=== PATIENT | female | born 1985 | race African-American/Black ===

== ENCOUNTER → 2022-08-02 | Outpatient (CLI) | payer BC, SELFPAY ==
[2022-08-02 10:27] LABS: Mucous, Urine 0 SEEN /hpf (<or=2+)
[2022-08-02 10:34] LABS: Color, Urine Yellow (Yellow); Glucose, Dipstick Normal (Normal); Ketone-Dipstick 50 mg/dl (Negative); Leukocyte Esterase-Dipstick Negative /ul (Negative); Nitrite-Dipstick Negative (Negative); Occult Blood-Urine 25 /ul (Negative); Protein-Dipstick 15 mg/dl (Negative); Specific Gravity, Urine 1.015 (1.002-1.030); Urine Bilirubin Dipstick Negative (Negative); Urine Clarity Clear (Clear); Urine Urobilinogen 1 mg/dl (Normal)
[2022-08-02 10:43] LABS: Bacteria RARE /hpf (None Seen); Red Blood Cells-Urine 0-5 SEEN /hpf (0-5); Squamous Epithelial Cells - UA 0-5 SEEN /hpf (5-10); White Blood Cells 0-5 SEEN /hpf (0-5)
== END | disposition home or self-care (01) ==
LOC: LABSPEC 10:25
PROVIDERS: Visit Provider Physician Assistant
DX: R30.0 Dysuria (principal)
CPT/HCPCS: 81001; 87086; 87088

== ENCOUNTER 2022-09-09 17:39 | Emergency (ER) | payer BC, SELFPAY ==
[2022-09-09 17:41] VITALS: BP 146/99; PULSE 102; RESP 18; TEMP 37.2; O2SAT 100; BMI 36.9
--- NOTE | 2022-09-09 17:44 | EDS_ITS ---
HPI <CARY Mustafa - Last Filed: 09/09/22 21:33> History of Present Illness Chief Complaint: Cold Sx Narrative Narrative: Presenting today with cold symptoms that she has had now for the last 2 weeks. She states that she has had a productive cough, runny nose, and sore throat. She has been taking Robitussin-DM without much relief. She denies any fever, chills, shortness of breath, chest pain, abdominal pain, nausea, vomiting, diarrhea. she denies a history of any chronic lung conditions. PFSH <CARY Mustafa - Last Filed: 09/09/22 21:33> PFSH Medical History no medical history Home Medications NK 09/09/22 [History Last Taken Unknown] Allergy/AdvReac Type Severity Reaction Status Date / Time No Known Allergies Allergy Verified 09/09/22 17:43 Surgical History H/O tubal ligation Social History Smoking Status: Current every day smoker tobacco type: cigarettes ROS <CARY Mustafa - Last Filed: 09/09/22 21:33> ROS ED Constitutional Constitutional ED: Reports fatigue; Denies chills, fever(s) or weakness Eyes Eyes: Reports none ENT ENT ED: Reports rhinorrhea and sore throat Cardiovascular Cardiovascular: Reports fatigue; Denies abdominal pain, chest pain, dyspnea on exertion or nausea Respiratory/Chest Respiratory/Chest: Reports chest congestion and cough; Denies chest tightness, dyspnea, hemoptysis or wheezing Gastrointestinal Gastrointestinal: Denies abdominal pain, diarrhea, nausea or vomiting Musculoskeletal Musculoskeletal: Reports none Integumentary Denies abscess or rash Neurologic Neurologic: Denies weakness Psychiatric Psychiatric: Denies anxiety or depression EXAM <CARY Mustafa - Last Filed: 09/09/22 21:33> Physical Exam Const Vital Signs: 09/09/22 17:41 09/09/22 18:28 Temperature 98.9 F Temperature Source Temporal Pulse Rate 102 H Respiratory Rate 18 Respiratory Effort Normal Non-Labored Respiratory Depth Normal Respiratory Pattern Normal Blood Pressure 146/99 H Blood Pressure Mean 114 Pulse Ox 100 Oxygen Delivery Method Room Air Positive well nourished and well developed General Appearance ED: well developed and NAD HEENT Reports TM's clear and moist mucous membranes HEENT Narrative: Steer pharynx erythemic, tonsils without exudate, uvula midline, no trismus, no drooling normocephalic and atraumatic Tympanic Membrane ED: Yes TM's clear Eyes PERRL and EOMs intact bilaterally Neck no lymphadenopathy, supple and no meningeal signs Resp normal respiratory effort and clear to auscultation bilaterally Cardio no murmurs Rate: regular rate Rhythm: regular rhythm GI non-tender, non-distended and no masses Palpation: soft Neuro oriented x3, CN's II-XII intact bilaterally and no sensory deficits noted Sensorium / Orientation: alert Motor Exam: strength 5/5 throughout Skin Lesions: no lesions Rashes: no rashes <Dr. Abraham Wang DO - Last Filed: 09/09/22 21:51> Physical Exam Const Vital Signs: 09/09/22 17:41 09/09/22 18:28 Temperature 98.9 F Temperature Source Temporal Pulse Rate 102 H Respiratory Rate 18 Respiratory Effort Normal Non-Labored Respiratory Depth Normal Respiratory Pattern Normal Blood Pressure 146/99 H Blood Pressure Mean 114 Pulse Ox 100 Oxygen Delivery Method Room Air MDM <CARY Mustafa - Last Filed: 09/09/22 21:33> [facility] Narrative Medical decision making narrative: Patient presenting today with cold like symptoms that she has had for almost 2 weeks now. Given the duration of her symptoms I do not think it will be beneficial to obtain swabs for COVID or flu. Patient has a Centor score of 0, because of this, I do not feel that a rapid strep swab is indicated. Chest x- ray obtained to rule out pneumonia and shows no acute findings. She is 100% on room air, afebrile, and well-appearing. She asked if I could write her a work note for the next few days. I have given her 2 days off work. I think that her symptoms are consistent with a viral bronchitis. She has been given supportive care measures and will be discharged home in stable condition. She is comfortable with plan. Radiography Chest X-Ray - ED: Read by ED Physician and Read by Radiologist Diagnostic Testing: Clinical Impression(s) from Imaging Studies Chest X-Ray 09/09/22 17:59 IMPRESSION: There are no acute findings. Electronically Signed: Damon Keenan MD at 18:29 EDT , <Dr. Abraham Wang, DO - Last Filed: 09/09/22 21:51> [facility] Narrative Medical decision making narrative: Patient presenting today with cold like symptoms that she has had for almost 2 weeks now. Given the duration of her symptoms I do not think it will be beneficial to obtain swabs for COVID or flu. Patient has a Centor score of 0, because of this, I do not feel that a rapid strep swab is indicated. Chest x- ray obtained to rule out pneumonia and shows no acute findings. She is 100% on room air, afebrile, and well-appearing. She asked if I could write her a work note for the next few days. I have given her 2 days off work. I think that her symptoms are consistent with a viral bronchitis. She has been given supportive care measures and will be discharged home in stable condition. She is comfortable with plan. This patient was seen with a PA/[employer] MAKER Individually assessed they patient including history and physical. I have reviewed everything on the chart that is available and agree with the documentation provided by the PA/SEA FO[employer] KISS MAKER including discussion about the assessment, treatment plan, discussion, and return precautions. Well- appearing 36-year-old female with cough for a couple of weeks. Vital signs stable she is afebrile. Will not use any need for viral testing. Chest x-ray was obtained and shows no acute process on my interpretation. Patient requested a couple of days off to recover because he is working 12-hour shifts. This is provided. Return precautions discussed Radiography Diagnostic Testing: Clinical Impression(s) from Imaging Studies Chest X-Ray 09/09/22 17:59 IMPRESSION: There are no acute findings. Electronically Signed: Damon Keenan MD at 18:29 EDT , Discharge Plan Triage Chief Complaint: Cold Sx ED Midlevel Provider: Shelley Irwin ED Provider: Felipe,Abraham Dx/Rx/DC Orders Clinical Impression: Bronchitis Instructions: ED Bronchitis, No Antibiotic (Adult) Prescriptions: No Action NK Stand Alone Forms: ED Work / School Excuse Primary Care Provider: Care Physician,No Primary Referrals: Care Physician,No Primary [Primary Care Provider] - 5-7 Days Activity Restrictions/Additional Instructions: Stay well hydrated, get plenty of rest, return for any worsening of symptoms. Disposition Disposition: Home, Self Care Discharge Date/Time: 09/09/22 19:29
--- NOTE | 2022-09-09 17:59 | RAD_ITS ---
STUDY: X-RAY CHEST REASON FOR EXAM: Female, 36 years old. CHEST PAIN cough TECHNIQUE: XR Chest 2 Views COMPARISON: None FINDINGS: There is no demonstrated pleural abnormality. Normal size heart. Normal mediastinum and gaye. Normal visualized pulmonary arteries. Normal visualized aortic arch and descending thoracic aorta. Normal visualized thoracic spine. Normal visualized ribs, clavicles, and shoulders. There is no demonstrated abnormality of the visualized soft tissue structures of the upper abdomen. RAD/Chest PA and Lateral IMPRESSION: There are no acute findings. Electronically Signed: Damon Keenan MD at 18:29 EDT ,
== END 2022-09-09 19:29 | disposition home or self-care (01) ==
PROVIDERS: Emergency Provider Student in an Organized Health Care Education/Training Program; Visit Provider Student in an Organized Health Care Education/Training Program
DX: J40 Bronchitis, not specified as acute or chronic (principal); F17.210 Nicotine dependence, cigarettes, uncomplicated
CPT/HCPCS: 71046; 99282

== ENCOUNTER → 2022-09-17 | Outpatient (CLI) | payer BC, SELFPAY ==
[2022-09-17 15:00] LABS: Absolute Lymphocyte Count 2.12 X10^3/uL (0.83-4.51); Absolute Neutrophil Count 10.3 X10^3/uL (2.0-7.7); Basophil# 0.09 X10^3/uL; Basophil% 0.6 % (0-1); Eosinophils% 1.4 % (0-5); Hematocrit 41.9 % (37-47); Hemoglobin 13.4 g/dL (12.0-15.0); Lymphocyte # 2.12 X10^3/ul (0.83-4.51); Lymphocyte % 15.2 % (19-41); Mean Corpuscular Hgb 25.5 pg (27.0-32.0); Mean Corpuscular Volume 79.8 fL (81-99); Monocyte# 1.08 X10^3/uL; Monocyte% 7.7 % (0-10); NRBC Flagged by Analyzer 0 % (0-5); Neutrophil % 73.7 % (47-70); Platelet Count 284 K/mm3 (150-450); RBC Distribution Width CV 17.6 % (11.6-14.6); RBC Distribution Width SD 48.2 fl (35.1-43.9); Red Blood Count 5.25 M/mm3 (4.2-5.4)
[2022-09-17 15:46] LABS: ALB/GLOB Ratio 0.9 RATIO (0.9-2.4); AST(SGOT) 11 U/L (15-37); Alanine Aminotransfer ALT/SGPT 21 U/L (13-56); Albumin, Serum 3.7 g/dL (3.2-5.0); Alkaline Phosphatase 59 U/L (45-117); Anion Gap 3 (5-15); BUN 9 mg/dL (7-18); BUN/Creat Ratio 13.4 RATIO (10-20); Calcium,Total 8.9 mg/dL (8.5-10.1); Chloride 109 mmol/L (98-107); Cholesterol 254 mg/dL (200); Creatinine, Serum 0.67 mg/dL (0.55-1.02); EST Glomerular Filtration Rate 106 mL/min (>60); Est Glom Filt Rate - Afr Amer 129 mL/min (>60); Globulin 3.9 g/dL (2.2-4.2); Glucose 90 mg/dL (74-106); High Density Lipoprotein 122 mg/dL; Potassium 3.4 mmol/L (3.5-5.1); Protein, Total 7.6 g/dL (6.4-8.2); Sodium Level 138 mmol/L (136-145); T4 Free Direct 0.97 ng/dL (0.76-1.46); Thyroid Stim Hormone (TSH) 0.63 uIU/mL (0.358-3.74); Triglycerides 62 mg/dL; Very Low Density Lipoprotein 12 mg/dL (5-40)
[2022-09-19 11:18] LABS: Thyroid Peroxidase AB 15 IU/mL (0-34)
== END | disposition home or self-care (01) ==
LOC: BIMLAB 11:39
PROVIDERS: PCP Internal Medicine; Referring Provider Internal Medicine; Visit Provider Internal Medicine
DX: I10 Essential (primary) hypertension (principal); E66.9 Obesity, unspecified
CPT/HCPCS: 36415; 80053; 80061; 84439; 84443; 85025; 86376

== ENCOUNTER → 2022-10-02 | Outpatient (CLI) | payer BC, SELFPAY ==
--- NOTE | 2022-10-02 19:35 | US_ITS ---
STUDY: THYROID ULTRASOUND REASON FOR EXAM: Female, 36 years old. Thyroid enlargement. TECHNIQUE: Ultrasound evaluation of the thyroid was performed with real-time and static contreras-scale imaging. COMPARISON: None. FINDINGS: RIGHT LOBE: The right lobe of the thyroid gland is enlarged and measures 6.1 cm x 2.3 cm x 1.9 cm. There is a homogeneous echotexture. There are scattered tiny cystic nodules in the right lobe. The largest nodule measures 4 mm x 3 mm x 2 mm. LEFT LOBE: The left lobe of the thyroid gland is enlarged and measures 5.8 cm x 2 cm x 1.3 cm. There is a homogeneous echotexture. There are no demonstrated solid, cystic or complex lesions. ISTHMUS: The isthmus measures 8 mm. The regional lymph nodes are normal. US/Thyroid IMPRESSION: Thyroid enlargement. Small cystic changes seen in the right lobe of the thyroid. Electronically Signed: Larry Giron MD at 15:13 EDT ,
== END | disposition home or self-care (01) ==
PROVIDERS: PCP Internal Medicine; Referring Provider Internal Medicine; Visit Provider Internal Medicine
DX: E04.9 Nontoxic goiter, unspecified (principal)
CPT/HCPCS: 76536

== ENCOUNTER → 2022-11-26 | Outpatient (CLI) | payer BC, SELFPAY ==
[2022-11-26 12:36] LABS: Anion Gap 8 (5-15); BUN 8 mg/dL (7-18); BUN/Creat Ratio 10.3 RATIO (10-20); Calcium,Total 9.7 mg/dL (8.5-10.1); Chloride 105 mmol/L (98-107); Creatinine, Serum 0.78 mg/dL (0.55-1.02); EST Glomerular Filtration Rate 89 mL/min (>60); Est Glom Filt Rate - Afr Amer 108 mL/min (>60); Glucose 112 mg/dL (74-106); Potassium 3.5 mmol/L (3.5-5.1); Sodium Level 136 mmol/L (136-145)
[2022-11-26 12:51] LABS: Absolute Lymphocyte Count 1.84 X10^3/uL (0.83-4.51); Absolute Neutrophil Count 4.7 X10^3/uL (2.0-7.7); Basophil# 0.08 X10^3/uL; Basophil% 1.1 % (0-1); Eosinophil# 0.33 X10^3/uL; Eosinophils% 4.3 % (0-5); Hematocrit 42.7 % (37-47); Hemoglobin 13.8 g/dL (12.0-15.0); Lymphocyte # 1.84 X10^3/ul (0.83-4.51); Lymphocyte % 24.2 % (19-41); Mean Corp Hgb Conc 32.3 g/dL (32-36); Mean Corpuscular Hgb 25.5 pg (27.0-32.0); Mean Corpuscular Volume 78.8 fL (81-99); Mean Platelet Vol. 11.6 fl (6.2-12.0); Monocyte# 0.59 X10^3/uL; Monocyte% 7.8 % (0-10); NRBC Flagged by Analyzer 0 % (0-5); Neutrophil # 4.74 X10^3/uL (2.7-7.7); Neutrophil % 62.2 % (47-70); Platelet Count 302 K/mm3 (150-450); RBC Distribution Width CV 14.5 % (11.6-14.6); RBC Distribution Width SD 40.8 fl (35.1-43.9); Red Blood Count 5.42 M/mm3 (4.2-5.4); White Blood Count 7.6 K/mm3 (4.4-11.0)
== END | disposition home or self-care (01) ==
LOC: BIMLAB 09:16
PROVIDERS: PCP Internal Medicine; Referring Provider Internal Medicine; Visit Provider Internal Medicine
DX: I10 Essential (primary) hypertension (principal)
CPT/HCPCS: 36415; 80048; 85025

== ENCOUNTER → 2022-12-04 | Outpatient (CLI) | payer BC, SELFPAY ==
--- NOTE | 2022-12-04 18:10 | RAD_ITS ---
INDICATION: Cough EXAMINATION/TECHNIQUE: X-RAY - XR Chest 2 Views COMPARISON: None FINDINGS: LUNGS: No consolidation, edema or effusion. No pneumothorax. MEDIASTINUM AND CARDIOVASCULAR STRUCTURES: Cardiac silhouette not enlarged. Central airways and mediastinal contour are unremarkable. RAD/Chest PA and Lateral IMPRESSION: No radiographic evidence of acute cardiopulmonary disease. Electronically Signed: Balwinder Cox MD at 18:33 EDT ,
== END | disposition home or self-care (01) ==
LOC: RAD 18:08
PROVIDERS: PCP Internal Medicine; Visit Provider Physician Assistant
DX: R05.9 Cough, unspecified (principal)
CPT/HCPCS: 71046

== ENCOUNTER 2022-12-08 17:16 | Emergency (ER) | payer BC, SELFPAY ==
[2022-12-08 17:17] VITALS: BP 93/78; PULSE 108; RESP 18; TEMP 36.8; O2SAT 98; BMI 37.1
--- NOTE | 2022-12-08 18:17 | EDS_ITS ---
HPI History of Present Illness Chief Complaint: Cough Informant: patient Narrative Narrative: Patient presents with cough for 2 days. Patient states she started coughing 2 days ago. However, it looks like she has been on Augmentin for about 5 or so days. She then corrects herself and she has been coughing for that time and that is why the meds were prescribed at urgent care. She was coughing up yellow sputum initially but now it is clear. She feels it is getting better but the cough is keeping her up at night. She is not lightheaded or having chest pain. No hemoptysis. No leg pain or swelling. No recent travel surgery or immobilization personal or family history of DVT or PE. No history of asthma. She has not used inhalers. She has not heard a wheeze but she does not know what that sounds like. She does have a history of getting bronchitis. [facility] Medical History Acute bronchitis, unspecified Allergic dermatitis Carpal tunnel syndrome Contact with and (suspected) exposure to other viral communicable diseases Dry mouth, unspecified Hypertension Impacted cerumen of both ears Impacted cerumen, right ear Ketonuria Laryngitis Left ankle pain Neck swelling Obesity (BMI 30-39.9) Pain on swallowing Tobacco abuse counseling Urinary incontinence Venous insufficiency of both lower extremities Home Medications cholecalciferol (vitamin D3) 250 mcg (10,000 unit) capsule 250 mcg PO QWEEK 09/17/22 [History Last Taken Unknown] fsclqbst-syd-ysni-FA-Ca carb-vit K 18 mg iron-400 mcg-500 mg tablet (One-A-Day Womens Formula) 1 tab PO DAILY 09/17/22 [History Last Taken Unknown] mv-min-vit C-ascorb Ub-Uxc-Nxy-herb #124 333 mg-1.7 mg chewable tablet (Airborne (ascorbate sodium)) tab PO 09/17/22 [History Last Taken Unknown] triamterene 37.5 mg-hydrochlorothiazide 25 mg tablet 1 tab PO QAM #30 tabs 10/22/22 [Rx Last Taken Unknown] amoxicillin 875 mg-potassium clavulanate 125 mg tablet 1 tab PO BID #20 tabs 12/04/22 [Rx Last Taken Unknown] albuterol sulfate 90 mcg/actuation aerosol inhaler (Ventolin HFA) 2 puff inhalation Q4H PRN PRN Wheezing ##1 12/08/22 [Rx Last Taken Unknown] benzonatate 100 mg capsule 200 mg (2 x 100 mg) PO TID PRN PRN Cough #15 CAPSULES 12/08/22 [Rx Last Taken Unknown] prednisone 20 mg tablet 60 mg (3 x 20 mg) PO DAILY #15 TABLETS 12/08/22 [Rx Last Taken Unknown] Allergy/AdvReac Type Severity Reaction Status Date / Time No Known Allergies Allergy Verified 12/08/22 17:17 Family History Grandfather Myocardial infarction 60s or 70s Other Diabetes Mental disorder Suicide attempt Surgical History H/O tubal ligation Hx of tubal ligation Social History Smoking Status: Current every day smoker tobacco type: cigarettes alcohol intake: never substance use type: does not use what type of physical activity do you participate in: walking frequency: 5-6 times per week ROS ROS ED ROS Narrative A complete review of systems was performed and is negative except as documented in the history of present illness. Some specific details below. Constitutional: No recent fevers or chills. No malaise. No myalgias. EYE: No discharge, visual complaints, or pain. ENT: No difficulty swallowing. No swelling. No pain. No reflux symptoms. CV: No chest pain palpitations or near syncope. Respiratory: See history of present illness. GI: No abdominal pain. No nausea vomiting diarrhea. No blood in stool. : No frequency dysuria or hematuria. Musculoskeletal: No recent trauma. No pains. No swelling. Skin: No rash. Nondiaphoretic. Neuro: No weakness or numbness. Endocrine: No polyuria or polydipsia. EXAM Physical Exam Narrative Exam Narrative: CONSTITUTIONAL: Patient is nontoxic in appearance. The patient looks comfortable. Work of breathing looks normal. HEENT: No notable trauma. Mucous membranes moist. No sinus tenderness. No indication of pain with swallowing. Ears are clear. EYES: No conjunctival injection. No proptosis. NECK:No JVD. No stridor. CARDIOVASCULAR: Regular rate. Regular rhythm. No notable murmur. No JVD. RESPIRATORY: No respiratory distress. Breathing is unlabored. Patient almost has a slight expiratory wheeze. Is very subtle. It comes out with a deep breath. She does have a dry cough while in the room. I hear no rales. I hear no rhonchi. There is no pain with a deep breath GASTROINTESTINAL: Not distended. Bowel sounds are normal. No tenderness. GENITOURINARY: No tenderness over the bladder. No CVA tenderness. MUSCULOSKELETAL: Atraumatic. No peripheral edema. No cord. No tenderness along the deep venous system. No asymmetry. No distended veins. NEUROLOGICAL: Patient is alert and appropriate. SKIN: No noted rashes. No diaphoresis. PSYCHIATRIC: Patient is calm. Mood is appropriate. Const Vital Signs: 12/08/22 17:17 12/08/22 18:03 12/08/22 18:47 Temperature 98.3 F Temperature Source Temporal Pulse Rate 108 H 84 Respiratory Rate 18 18 Respiratory Effort Normal Non-Labored Respiratory Depth Normal Respiratory Pattern Normal Blood Pressure 93/78 Blood Pressure Mean 83 Pulse Ox 98 Oxygen Delivery Method Room Air Room Air MDM MDM MDM Narrative Medical decision making narrative: Patient was given a breathing treatment here. She does not know if it made much difference but when I walked back in the room she is not coughing at all now. She does still have a just a hint of an end expiratory wheeze. She is a smoker and was counseled to quit. She is not bringing up colored sputum now. She has never had blood. I will get her on Tessalon Perles and a short course of steroids as well as an MDI. We will have her follow-up. I do not see indication for x-ray at this time. She is already on antibiotics. She has no risk factors or clinical suspicion of pulmonary embolus. Discharge Plan Triage Chief Complaint: Cough ED Provider: Eric Rausch Dx/Rx/DC Orders Clinical Impression: Acute bronchitis with bronchospasm, Continuous tobacco abuse Instructions: ED Bronchitis with Wheezing (Adult) Prescriptions: New prednisone 20 mg tablet 60 mg PO DAILY Qty: 15 0RF benzonatate [benzonatate] 100 mg capsule 200 mg PO TID PRN PRN (Reason: Cough) Qty: 15 0RF albuterol sulfate [Ventolin HFA] 90 mcg/actuation HFA aerosol inhaler 2 puff inhalation Q4H PRN PRN (Reason: Wheezing) Qty: 1 0RF No Action cholecalciferol (vitamin D3) 250 mcg (10,000 unit) capsule 250 mcg PO QWEEK Airborne (ascorbate sodium) 333-1.7 mg tablet,chewable PO One-A-Day Womens Formula 18 mg iron-400 mcg-500 mg tablet 1 tab PO DAILY triamterene-hydrochlorothiazid 37.5-25 mg tablet 1 tab PO QAM Qty: 30 2RF amoxicillin-pot clavulanate 875-125 mg tablet 1 tab PO BID Qty: 20 0RF Primary Care Provider: Sherlyn Shoemaker Referrals: Sherlyn Shoemaker MD [Primary Care Provider] - 3-5 Days if not improving Disposition Disposition: Home, Self Care
[2022-12-08 18:47] VITALS: PULSE 84; RESP 18
[2022-12-08] MEDS: Ipratropium/Albuterol Sulfate 3 ML AMPUL.NEB INHALATION (18:48)
== END 2022-12-08 19:43 | disposition home or self-care (01) ==
PROVIDERS: Emergency Provider Emergency Medicine; PCP Internal Medicine; Visit Provider Emergency Medicine
DX: J20.9 Acute bronchitis, unspecified (principal); I10 Essential (primary) hypertension; Z79.899 Other long term (current) drug therapy; F17.210 Nicotine dependence, cigarettes, uncomplicated
CPT/HCPCS: 94640; 99282

== ENCOUNTER 2022-12-24 09:05 | Outpatient (RCR) | payer BC, SELFPAY ==
--- NOTE | 2022-12-24 14:43 | HP.PTEVAL ---
Patient's Visit Information Visit Information Visit Information: CHENTE HUNT is a 37 year old F referred to Physical Therapy by Dr. Amy Ricci MD with a diagnosis of MIXED UI. Date of Evaluation: 12/24/22 Physical Therapist: Chapis Shelton PT, Cert MDT Visit Plan Frequency: 1x/Week Duration: 2-4 Weeks Plan: PF THERAPY (MANUALLY IF NEEDED/INDICATED/AGREED TO) FOR STRENGTHENING, LENGTHENING/RELAXATION AND ENDURANCE TRAINING. PELVIC FLOOR STRENGTHENING. URGE AND FREQUENCY EDUCATION. HEALTHY BLADDER HABIT EDUCATION. TRAINING IN COORDINATION OF PELVIC FLOOR MUSCULATURE WITH HIP AND CORE (TRANSVERSE ABDOMINUS) MUSCULATURE. POSTURE CORRECTION/STRENGTHENING. CORE STRENGTHENING. IVETTE LE ROM, STRETCHING AND STRENGTHENING. TRAINING IN ABDOMINAL CAVITY PRESSURE MGMT WITH ADL'S. 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 Disability: NO Present symptoms: UI WITH LAUGHING, COUGHING AND SNEEZING CONSISTANTLY. LEAKING 5 OR MORE TIMES A DAY. NOT JUST SMALL AMOUNTS OF LEAKING. WETTING OUTERWARE. PATIENT REPORTS SOME IRRIATION IN THE GENITAL AREA. SHE STATES DR. RICCI THINKS SHE MIGHT JUST BE IRITATED AND SWOLLEN IN THE GENTEAL AREA DUE TO UTI'S AND BECAUSE THIS HAS BEEN GOING ON SO LONG. Present since: 2007 Pain or discomfort in the lower abdominal or genital area: Yes - patient states the feeling is like she has a UTI. Pain Scale: WORST 5/10, LEAST 0/10 Currently: 3/10 Is it getting better, worse or staying the same: GETTING WORSE Commenced as a result of: CHILDBIRTH ORIGINALLY THEN AN AGGRESSIVE SEXUAL ENCOUNTER ABOUT 2014. Symptoms at onset: SMALL AMT'S OF LEAKING Worse: COUGHING, LAUGHING, SNEEZING, RECENT EPISODE OF PNEUMONIA Better: GEMTESA STARTED ABOUT 2 MONTHS AGO, EMTYING BLADDER ABOUT EVERY 2 HRS. OTHER: GREAT IMPROVEMENT WITH GEMTESA UNTIL EPISODE OF PNEUMONIA. Disturbed sleep: ZERO Previous history/Previous treatment: HAS BEEN WEARING PADS FOR ABOUT A YEAR. NO OTHER TREATMENT PRIOR TO SEEING DR. RICCI. HAS SEEN DR. RICCI APPROX 2 VISITS AND PRESCRIBED GEMTESA Gait: NORMAL Prolapse (Falling out feeling): PATIENT STATED NO AFTER PROLAPSE WAS DEFINED FOR HER BY THIS PT. Frequency of Urination: ABOUT EVERY TWO HOURS RECOMMENDED BY DR. RICCI PER PATIENT REPORT. Ability to stop urine flow: YES Ability to initiate urine stream: YES Dyspareunia: N/A Bowel Incontinence: NO Accidents: NO Unexplained weight loss: NO Imaging: PATIENT REPORTS HAVING US AND DR. RICCI TOLD HER SHE HAS NORMAL EMPTYING. PMH/Recent major surgery: CHLAMYDIA. TUBAL LIGATION 2014/2015. CYST ON THYROID - HAVING BARIUM SWOLLOW NEXT WEEK. PATIENT REPORTS A HX OF 2 PREGNANCIES WITH COMPLICATIONS OF GESTATIONAL DM AND FIRST CHILD GETTING STUCK. Objective Objective: Sitting/Standing Posture: FAIR. FH. RSH'S. NORMAL LORDOSIS. NO RELAVANT LATERAL SHIFT. Active Correction of posture: NE Other Observations: INDEP GAIT AND TRANSFERS Sensory deficit: IVETTE LE LIGHT TOUCH SENSATION GROSSLY INTACT AND SYMMETRICAL ROM deficit: TIGHT IVETTE HIP ADDUCTORS. Motor deficit: POOR CORE STRENGTH. IVETTE HIPS 4/5, KNEES 5/5 AND ANKLES 5/5. PATIENT COMMUNICATES A GOOD UNDERSTANDING OF HOW TO CONTRACT PELVIC FLOOR MUSCLES AND STATES SHE CAN PARTIALLY STOP URINE STREAM DURING VOIDING. Dural Signs: NEGATIVE IVETTE LE'S. Lumbar mvmt loss: flex - NIL ext - MOD R SG - MIN L SG - MIN PATIENT DENIES LBP AND DENIES ANY INCREASED PAIN WITH LUMBAR ROM TESTING. Core strength: POOR Palpation: TO ACUTE LUMBAR OR HIP TENDERNESS. NO INTERNAL PELVIC EXAM TODAY. FUNCTIONAL SCREEN: Incontinence Impact Questionnaire Score: 15 Urogenital Distress Inventory Score: 13 Goals Goal 1:: DECREASE URINARY LEAKAGE EPISODES TO ONE OR LESS PER DAY Goal Time Frame: 8-12 Weeks Goal 2:: PATIENT WILL SUCCESSFULLY DELAY VOIDING LONG NEEDED WHEN URGENCY OCCURS TO SUCCESSFULLY MAKE IT TO THE BATHROOM WITHOUT PAIN. Goal Time Frame: 6-8 Weeks Goal 3:: PATIENT WILL DEMONSTRATE/COMMUNICATE 10 CONSISTENT AND CONSECUTIVE 10 SECOND PELVIC FLOOR MUSCLE CONTRACTIONS TO DEMONSTRATE IMPROVED PELVIC FLOOR ENDURANCE. Goal Time Frame: 8-12 Weeks Goal 4:: DEVELOP HEALTHY FLUID INTAKE HABITS WITH FLUID INTAKE OF ? BODY WEIGHT IN OUNCES PER DAY AND 2/3 BEING WATER. Goal Time Frame: 2-4 Weeks Goal 5:: NORMALIZE VOIDING FREQUENCEY TO EVERY 3-4 HOURS WITHOUT PAIN. Goal Time Frame: 8-12 Weeks Goal 6:: PATIENT WILL BE INDEP WITH A HEP/HOME INSTRUCTIONS FOR CONTINUED IMPROVEMENT ONCE FORMAL PHYSICAL THERAPY CONCLUDES. Goal Time Frame: 8-12 Weeks Anticipated Interventions Patient/Client Instruction: Educate patient on: Condition, Plan of Care and Risk Factors For the Purpose of:: To improve self management Therapeutic Exercise to Include: Strength training, Endurance training, Coordination, Body mechanics, Postural training, Flexibilty training, Neuromotor development and Relaxation training For the Purpose of:: To increase ROM, To improve muscle performance and motor function, To increase tolerance to activity/condition/position and To improve ability of physical actions for home/community/work/leisure Text: Thank you for the opportunity to evaluate your patient. For Medicare and Medicare HMO plans, please review the plan of care and approve it. It will need to be FAXED BACK to us at [phone] for Medicare purposes. For Medicare only, by signing this I certify the plan of care. Please let me know if there are questions or concerns regarding this plan of care. Physician Signature: Date:
--- NOTE | 2023-02-04 09:27 | HP.PT.NRP ---
Patient Information Patient Information: CHENTE HUNT was seen in my office for initial evaluation on 12/24/22. The following Plan of Care was established for this patient: POC Established Initial Frequency: 1x/Week Initial Duration: 2-4 Weeks Anticipated Interventions Patient/Client Instruction: Educate patient on: Condition, Plan of Care and Risk Factors For the Purpose of:: To improve self management Therapeutic Exercise to Include: Strength training, Endurance training, Coordination, Body mechanics, Postural training, Flexibilty training, Neuromotor development and Relaxation training For the Purpose of:: To increase ROM, To improve muscle performance and motor function, To increase tolerance to activity/condition/position and To improve ability of physical actions for home/community/work/leisure Last Seen Last Seen: This patient was last seen in our office 12/24/22. Pertinent comments regarding their Physical therapy will appear below: This patient has not returned to Physical Therapy since her initial evaluation and is appropriate to return to MD for further follow-up as needed. At this point I will be discontinuing this patient from physical therapy. I would be happy to see this patient again in the future if found appropriate by the physician. Thank you! Chapis Shelton, PT, Cert MDT
== END 2022-12-24 19:00 | disposition home or self-care (01) ==
LOC: PT 09:05
PROVIDERS: PCP Internal Medicine; Referring Provider Urology; Visit Provider Urology
DX: N39.46 Mixed incontinence (principal)
CPT/HCPCS: 97162

== ENCOUNTER → 2023-02-04 | Outpatient (CLI) | payer BC, SELFPAY ==
[2023-02-04 14:09] LABS: HIV - WCH Non-Reactive (Nonreactive); Hepatitis C Antibody Non-Reactive (Nonreactive); Syphilis Antibodies Non-reactive
[2023-02-06 05:07] LABS: HSV 2 IgG < 0.91 index (0.00-0.90)
[2023-02-07 09:09] LABS: Chlamydia By Nucleic Acid AMP Negative (Negative); Gonococcus By Nucleic Acid AMP Negative (Negative)
[2023-02-08 10:08] LABS: HPV APTIMA, High Risk Negative (Negative)
== END | disposition home or self-care (01) ==
PROVIDERS: PCP Internal Medicine; Referring Provider Nurse Practitioner Women's Health; Visit Provider Nurse Practitioner Women's Health
DX: Z11.3 Encounter for screening for infections with a predominantly sexual mode of transmission (principal); Z20.2 Contact with and (suspected) exposure to infections with a predominantly sexual mode of transmission
CPT/HCPCS: 36415; 86695; 86696; 86703; 86780; 86803; 87491; 87591; 87624; 88175; G0145

== ENCOUNTER → 2023-11-02 | Outpatient (CLI) | payer BC, SELFPAY | END | disposition home or self-care (01) | PROVIDERS: PCP Internal Medicine; Referring Provider Physician Assistant; Visit Provider Physician Assistant | DX: R30.0 Dysuria (principal) | CPT/HCPCS: 87086; 87088 ==

== ENCOUNTER 2023-11-03 05:45 | Emergency (ER) | payer BC, SELFPAY ==
[2023-11-03 05:47] VITALS: BP 149/97; PULSE 104; RESP 18; TEMP 36.1; O2SAT 98; BMI 41.3
--- NOTE | 2023-11-03 06:31 | EX.ED.DYSGE1 ---
HPI History of Present Illness Chief Complaint: Foreign Body Informant: patient Narrative Narrative: Patient is a 38-year-old female with past medical history of hypertension. She states that yesterday she had sharp stabbing pain in the lower abdomen. She states after having this pain she cannot remember if she had placed a tampon or not. She states she is concerned that there is retained tampon and she is developing infection and with this comes in for evaluation [facility] Medical History Vaginal candidiasis Insomnia Anxiety and depression Tobacco abuse counseling Venous insufficiency of both lower extremities Neck swelling Obesity (BMI 30-39.9) Hypertension Urinary incontinence Carpal tunnel syndrome Allergic dermatitis Home Medications ?Medication ?Instructions ?Recorded ?Last Taken ?Type NK 11/03/23 Unknown History bupropion HCl 150 mg 24 hr tablet, 150 mg PO QAM #90 tabs 11/06/23 Unknown Rx extended release (Wellbutrin XL) buspirone 5 mg tablet 5 mg PO BID #180 tabs 11/06/23 Unknown Rx triamterene 37.5 1 tab PO QAM #90 tabs 11/06/23 Unknown Rx mg-hydrochlorothiazide 25 mg tablet Allergy/AdvReac Type Severity Reaction Status Date / Time No Known Allergies Allergy Verified 11/06/23 08:01 Family History Grandfather Myocardial infarction 60s or 70s Other Diabetes Mental disorder Suicide attempt Surgical History S/P wisdom tooth extraction H/O tubal ligation Hx of tubal ligation Social History number of children: 2 current occupational status: employed 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 Smoking Status: Current every day smoker tobacco type: cigarettes alcohol intake: never substance use type: does not use what type of physical activity do you participate in: walking frequency: 5-6 times per week seatbelt use: always do you feel safe at home: Yes additional social history: Single ROS ROS ED Constitutional Constitutional ED: Denies chills or fever(s) ENT ENT ED: Denies sore throat Cardiovascular Cardiovascular: Denies chest pain Respiratory/Chest Respiratory/Chest: Denies cough or dyspnea Gastrointestinal Gastrointestinal: Reports abdominal pain; Denies diarrhea, nausea or vomiting Genitourinary Genitourinary ED: Denies dysuria, hematuria or urinary frequency Musculoskeletal Musculoskeletal: Denies back pain or myalgias Integumentary Denies rash Neurologic Neurologic: Denies headache(s) Hematologic/Lymphatic Hematologic/Lymphatic: Denies easy bleeding or easy bruising EXAM Physical Exam Const Vital Signs: 11/03/23 05:47 11/03/23 05:47 Temperature 97 F L Temperature Source Temporal Pulse Rate 104 H Respiratory Rate 18 Respiratory Effort Normal Respiratory Pattern Normal Blood Pressure 149/97 H Blood Pressure Mean 114 Pulse Ox 98 Positive well nourished, well developed and obese General Appearance ED: well developed; Negative for pallor Nutritional Appearance: obese HEENT HEENT Narrative: Normocephalic atraumatic Eyes PERRL and EOMs intact bilaterally General Eye ED: Negative for pale conjunctiva or scleral icterus Neck supple Resp normal respiratory effort and clear to auscultation bilaterally Cardio regular rate and regular rhythm Rate: other Other Details: Heart is regular rate and rhythm without murmurs rubs or gallops Radial and carotid pulses are equal and symmetric GI normal to inspection, nondistended, normoactive bowel sounds, non-tender, non-distended and no masses GI Narrative: No voluntary guarding or rigidity or pulsatile mass Auscultation: normoactive bowel sounds Palpation: soft Narrative: External genitalia is normal Speculum exam reveals a small to moderate amount of yellowish-green discharge within the vaginal vault. There is no retained foreign body or tampon present. No vaginal bleeding. The cervix is visualized and has small amount of speckling/ulceration. No cervical motion tenderness or adnexal masses noted. Back/Spine no CVA tenderness Extremity normal to inspection Neuro oriented x3, CN's II-XII intact bilaterally and no sensory deficits noted Sensorium / Orientation: alert Motor Exam: strength 5/5 throughout Psych Psych Narrative: Patient has a nervous/anxious affect Skin no rashes or lesions noted, no wounds and skin turgor normal General Skin Exam: Negative for jaundice or pallor MDM MDM MDM Narrative Medical decision making narrative: Patient presented to the ER hypertensive otherwise with stable vitals. She states she noticed sharp pain in the lower abdomen yesterday which is since resolved but she is concerned that there is retained foreign body/tampon causing this issue. Therefore a general exam was performed and there is no retained foreign body but there is vaginal discharge with speckling of the cervix concerning for gonorrhea versus chlamydia. She does not have cervical motion tenderness or adnexal pain going against pelvic inflammatory disease or ovarian cyst. The patient's urine will be sent for gonorrhea and chlamydia based on her physical exam. However as she does not have a retained tampon in her vitals are stable going against toxic shock and she does not have cervical motion tenderness going against pelvic inflammatory disease I do not feel there is need for further workup. As there is high likelihood she does have vaginal infection based on the appearance of her cervix and discharge I will give her Rocephin and placed on a 7-day course of doxycycline. She can follow-up with [facility] for repeat evaluation if symptoms persist History & Record Review Discussion w/independent historian: Patient Discharge Plan Triage Chief Complaint: Foreign Body ED Provider: Sonido Hugo Dx/Rx/DC Orders Clinical Impression: Pelvic pain, Vaginal discharge, Hypertension Instructions: Vaginal Infection, ED Abdominal Pain Unkn Cause Fem Prescriptions: No Action triamterene-hydrochlorothiazid 37.5-25 mg tablet 1 tab PO QAM Qty: 90 1RF bupropion HCl [Wellbutrin XL] 150 mg tablet extended release 24 hr 150 mg PO QAM Qty: 90 1RF buspirone 5 mg tablet 5 mg PO BID Qty: 180 1RF NK Primary Care Provider: Sherlyn Shoemaker Referrals: Sherlyn Shoemaker MD [Primary Care Provider] - Activity Restrictions/Additional Instructions: Your physical exam did not show any type of retained foreign body. There was discharge and mild irritation to your cervix which could be potentially from a vaginal infection. Take the antibiotic as directed to help resolve this and refrain from sex for the next 7 days while you are on the medication. Return to the ER should you have any further concerns and/or follow-up with [facility] for repeat evaluation Print Language: Greenlandic Disposition Disposition: Home, Self Care Discharge Date/Time: 11/03/23 07:04
[2023-11-03] MEDS: Doxycycline 100 MG CAPSULE PO (06:32)
[2023-11-03 06:35] VITALS: BP 147/103; PULSE 79; RESP 16; TEMP 36.6; O2SAT 98
[2023-11-03 06:52] LABS: Internal QC Validated? YES +Cl - CLEAR BKGD; Pregnancy, Urine Negative Negative
[2023-11-03] MEDS: Ceftriaxone 500 MG Vial IM (07:02)
== END 2023-11-03 07:04 | disposition home or self-care (01) ==
PROVIDERS: Emergency Provider Emergency Medicine; PCP Internal Medicine; Visit Provider Emergency Medicine
DX: N89.8 Other specified noninflammatory disorders of vagina (principal); I10 Essential (primary) hypertension; R10.2 Pelvic and perineal pain; F41.8 Other specified anxiety disorders; Z79.899 Other long term (current) drug therapy; Z98.51 Tubal ligation status; F17.210 Nicotine dependence, cigarettes, uncomplicated
CPT/HCPCS: 81025; 87491; 87591; 96372; 99284

== ENCOUNTER → 2023-11-06 | Outpatient (CLI) | payer BC, SELFPAY ==
[2023-11-06 08:27] LABS: Bacteria 0 SEEN /hpf (None Seen); Mucous, Urine 0 SEEN /hpf (<or=2+); Red Blood Cells-Urine 0 SEEN /hpf (0-5); Squamous Epithelial Cells - UA 0 SEEN /hpf (5-10); White Blood Cells 0 SEEN /hpf (0-5)
[2023-11-06 12:05] LABS: Color, Urine Yellow (Yellow); Glucose, Dipstick Normal (Normal); Ketone-Dipstick Negative (Negative); Leukocyte Esterase-Dipstick Negative /ul (Negative); Nitrite-Dipstick Negative (Negative); Occult Blood-Urine Negative /ul (Negative); Protein-Dipstick Negative (Negative); Specific Gravity, Urine 1.015 (1.002-1.030); Urine Bilirubin Dipstick Negative (Negative); Urine Clarity Clear (Clear); Urine Urobilinogen Normal (Normal)
[2023-11-06 12:42] LABS: Absolute Lymphocyte Count 1.84 X10^3/uL (0.83-4.51); Absolute Neutrophil Count 5.6 X10^3/uL (2.0-7.7); Basophil# 0.07 X10^3/uL; Basophil% 0.8 % (0-1); Eosinophil# 0.23 X10^3/uL; Eosinophils% 2.7 % (0-5); Hematocrit 38.8 % (37-47); Hemoglobin 12.2 g/dL (12.0-15.0); Lymphocyte # 1.84 X10^3/ul (0.83-4.51); Lymphocyte % 21.8 % (19-41); Mean Corp Hgb Conc 31.4 g/dL (32-36); Mean Corpuscular Hgb 24.2 pg (27.0-32.0); Mean Corpuscular Volume 76.8 fL (81-99); Mean Platelet Vol. 11.7 fl (6.2-12.0); Monocyte# 0.68 X10^3/uL; Monocyte% 8.1 % (0-10); NRBC Flagged by Analyzer 0 % (0-5); Neutrophil # 5.56 X10^3/uL (2.7-7.7); Neutrophil % 65.9 % (47-70); Platelet Count 232 K/mm3 (150-450); RBC Distribution Width SD 43.8 fl (35.1-43.9); Red Blood Count 5.05 M/mm3 (4.2-5.4); White Blood Count 8.4 K/mm3 (4.4-11.0)
[2023-11-06 12:45] LABS: ALB/GLOB Ratio 0.9 RATIO (0.9-2.4); AST(SGOT) 19 U/L (15-37); Alanine Aminotransfer ALT/SGPT 22 U/L (13-56); Albumin, Serum 3.7 g/dL (3.2-5.0); Alkaline Phosphatase 54 U/L (45-117); Anion Gap 7 (5-15); BUN 12 mg/dL (7-18); BUN/Creat Ratio 17.5 RATIO (10-20); Calcium,Total 9.3 mg/dL (8.5-10.1); Chloride 109 mmol/L (98-107); Cholesterol 205 mg/dL (200); Creatinine, Serum 0.69 mg/dL (0.55-1.02); EST Glomerular Filtration Rate 103 mL/min (>60); Est Glom Filt Rate - Afr Amer 124 mL/min (>60); Globulin 3.9 g/dL (2.2-4.2); Glucose 112 mg/dL (74-106); High Density Lipoprotein 77 mg/dL; Potassium 3.8 mmol/L (3.5-5.1); Protein, Total 7.6 g/dL (6.4-8.2); Sodium Level 138 mmol/L (136-145); Triglycerides 80 mg/dL; Very Low Density Lipoprotein 16 mg/dL (5-40)
== END | disposition home or self-care (01) ==
LOC: BIMLAB 08:25
PROVIDERS: PCP Internal Medicine; Visit Provider Internal Medicine
DX: R30.0 Dysuria (principal); R10.2 Pelvic and perineal pain; I10 Essential (primary) hypertension
CPT/HCPCS: 36415; 80053; 80061; 81001; 85025; 87086

== ENCOUNTER 2023-11-26 11:41 | Emergency (ER) | payer BC, SELFPAY ==
[2023-11-26 11:44] VITALS: BP 158/107; PULSE 94; RESP 16; TEMP 36.7; O2SAT 98; BMI 39.6
--- NOTE | 2023-11-26 12:04 | EX.ED.VIS.PS ---
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) Onset/Context/Timing Onset: Days (Suicidal ideation) and Month(s) (Depression with altered sleep and weight gain) Conflict: Work (States she is doing the job of 3 people.) Timing: Continuous and Waxes and wanes Current Severity: Moderate Maximum Severity: Severe Worsened by: Situational factors and Alcohol intoxication Relieved by: Nothing Associated Symptoms Associated Symptoms - Psych: Positive for Depressed, Change in Eating, Change in sleeping, Decreased Interest and Suicidal Thoughts; Negative for Guilt, Decreased Concentration, Hopelessness, Easily distracted, Grandiosity, Flight of Ideas, Increased activity, Pressured Speech, Agitated, Angry, Hostile, Threatening, Confusion, Paranoia, Visual Hallucinations or Auditory Hallucinations Specific plan (suicidal thought): Took 10-12 150 mg Wellbutrin tablets on November 23 Narrative Narrative: Patient is a 38-year-old woman. She has history of depression anxiety. She was seen by her psychiatrist 2 to 3 months ago. She was placed at that time on Wellbutrin and BuSpar. She has not been compliant with the medicine prior to restarting and since restarting. She was seen by Mili the nurse practitioner at the internal medicine office. She was pink slipped by Mili. Since this is not a valid pink slip it was rewritten by me. Patient admits to depression and anxiety. She is under stress. She believes she is doing the work of 3 people. 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 She has had problems getting to sleep and staying asleep for the past several months. She states she eats to self qualify. She has had a weight gain. She has had prior attempts. Most recent attempt prior to November 23 was 1 year ago. She cut her wrists at that time. She smokes 1/2 to 1 pack of cigarettes a day. She has been consuming anywhere between 5-8 shots of vodka a day. She denies drug use. Prior similar symptoms: Yes Recent Illness/Hospitalization: No PFSH PFSH Medical History Vaginal candidiasis Insomnia Anxiety and depression Tobacco abuse counseling Venous insufficiency of both lower extremities Neck swelling Obesity (BMI 30-39.9) Hypertension Urinary incontinence Carpal tunnel syndrome Allergic dermatitis Home Medications ?Medication ?Instructions ?Recorded ?Last Taken ?Type NK 11/03/23 Unknown History bupropion HCl 150 mg 24 hr tablet, 150 mg PO QAM #90 tabs 11/06/23 Unknown Rx extended release (Wellbutrin XL) buspirone 5 mg tablet 5 mg PO BID #180 tabs 11/06/23 Unknown Rx triamterene 37.5 1 tab PO QAM #90 tabs 11/06/23 Unknown Rx mg-hydrochlorothiazide 25 mg tablet Allergy/AdvReac Type Severity Reaction Status Date / Time No Known Allergies Allergy Verified 11/26/23 10:32 Family History Grandfather Myocardial infarction 60s or 70s Other Diabetes Mental disorder Suicide attempt Surgical History S/P wisdom tooth extraction H/O tubal ligation Hx of tubal ligation Social History number of children: 2 current occupational status: employed 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 Smoking Status: Current every day smoker tobacco type: cigarettes alcohol intake: never substance use type: does not use what type of physical activity do you participate in: walking frequency: 5-6 times per week seatbelt use: always do you feel safe at home: Yes additional social history: Single ROS ROS ED Constitutional Constitutional ED: Denies chills, fever(s), subjective, sweats or weight loss Eyes Eyes: Denies blurry vision or change in vision ENT ENT ED: Denies rhinorrhea or sore throat Cardiovascular Cardiovascular: Denies chest pain, palpitations or racing heartbeat Respiratory/Chest Respiratory/Chest: Denies cough, dyspnea or dyspnea on exertion Gastrointestinal Gastrointestinal: Denies abdominal pain, constipation, diarrhea, melena, nausea or vomiting Genitourinary Genitourinary ED: Denies dysuria, hematuria or urinary frequency Musculoskeletal Musculoskeletal: Denies arthralgias, back pain or myalgias Integumentary Denies rash Neurologic Neurologic: Reports weakness; Denies headache(s) or paresthesias Psychiatric Psychiatric: Reports anxiety, depression, suicidal ideation and suicidal thoughts Hematologic/Lymphatic Hematologic/Lymphatic: Denies easy bleeding or easy bruising EXAM Physical Exam Const Vital Signs: 11/26/23 11:44 Temperature 98.1 F Temperature Source Temporal Pulse Rate 94 Respiratory Rate 16 Blood Pressure 158/107 H Blood Pressure Mean 124 Pulse Ox 98 Oxygen Delivery Method Room Air Positive well nourished and well developed Constitutional Narrative: BMI is 39.6. She appears in no obvious distress. Mood is flat affect is depressed. Patient is tearful as well. General Appearance ED: well developed; Negative for pallor HEENT normocephalic and atraumatic Eyes PERRL and EOMs intact bilaterally General Eye ED: Negative for pale conjunctiva or scleral icterus Neck no lymphadenopathy, supple and no JVD Resp normal respiratory effort and clear to auscultation bilaterally Cardio S1 normal heart sound, S2 normal heart sound and no murmurs Rate: regular rate Rhythm: regular rhythm GI non-tender, non-distended and no masses Inspection: abdominal distention Auscultation: normoactive bowel sounds Palpation: soft Extremity normal to inspection Neuro oriented x3 and CN's II-XII intact bilaterally Emily Coma Scale: document GCS findings Spontaneous Obeys Commands Oriented 15 Psych denies hallucinations and denies homicidal ideation; Negative for denies suicidal ideation Appearance: grossly normal Attitude: withdrawn and guarded Activity / Motor Behavior: psychomotor slowing Speech: minimal, slow, soft and delayed Mood & Affect: depressed, sad and tearful Thought Process: normal thought process Thought Content: suicidality, No phobia(s), No delusion(s), No hallucination(s), No ideas of reference, No derealization, No rumination(s) and No compulsion(s) Attention / Concentration: attention grossly intact Memory / Cognition: memory grossly intact Insight: poor Judgement: limited Skin General Skin Exam: Negative for jaundice or pallor Lesions: no lesions Rashes: no rashes MDM MDM MDM Narrative Medical decision making narrative: Suspect patient's symptoms are due to noncompliance with meds. Patient is depressed she is anxious does have suicidal thoughts and did have an attempt on Saturday. Attempt is not significant. Patient is embarrassed that she was pink slipped by Mili who saw her prior to the ER visit. I did receive a call from Mili prior to patient's arrival. Mental health workup was initiated to clear for admission to psychiatric facility. She will need suicide precautions. Lab Data Attestation: I reviewed the patient's lab results. Lab results narrative: CBC reveals MCV of 75 and MCH of 24.5 otherwise unremarkable. Electrolyte panel is unremarkable. Serum test negative. Talk screen was positive for cannabis which patient denied. Alcohol was negative. Labs: Laboratory Results - last 24 hr 11/26/23 11/26/23 12:10 12:20 WBC 8.1 RBC 4.94 Hgb 12.1 Hct 37.3 MCV 75.5 L MCH 24.5 L MCHC 32.4 RDW Std Deviation 42.8 RDW Coeff of Bre 15.7 H Plt Count 264 MPV 10.2 Immature Gran % (Auto) 0.600 Neut % (Auto) 70.5 H Lymph % (Auto) 18.9 L Arthur % (Auto) 6.3 Eos % (Auto) 2.6 Baso % (Auto) 1.1 H Absolute Neuts (auto) 5.7 Absolute Lymphs (auto) 1.53 Nucleated RBC % 0 Sodium 139 Potassium 3.5 Chloride 111 H Carbon Dioxide 22.0 Anion Gap 6 BUN 13 Creatinine 0.57 Estim Creat Clear Calc 135.49 Est GFR (MDRD) Af Amer 153 Est GFR (MDRD) Non-Af 127 BUN/Creatinine Ratio 22.6 H Glucose 97 Calcium 9.2 Serum , Qual NEGATIVE Urine Opiates Screen NEGATIVE Urine Methadone Screen NEGATIVE Ur Barbiturates Screen NEGATIVE Ur Phencyclidine Scrn NEGATIVE Ur Amphetamines Screen NEGATIVE MDMA (Ecstasy) Screen NEGATIVE U Benzodiazepines Scrn NEGATIVE Urine Cocaine Screen NEGATIVE U Cannabinoids Screen POSITIVE H Ur Drug Screen Comment Ethyl Alcohol < 3.0 Discharge Plan Triage Chief Complaint: Suicidal ED Provider: Eric Jama Dx/Rx/DC Orders Clinical Impression: Depression with suicidal ideation, Hypertension, Suicide attempt, Alcoholism, Cannabis use disorder, Adult BMI 39.0-39.9 kg/sq m Prescriptions: No Action triamterene-hydrochlorothiazid 37.5-25 mg tablet 1 tab PO QAM Qty: 90 1RF bupropion HCl [Wellbutrin XL] 150 mg tablet extended release 24 hr 150 mg PO QAM Qty: 90 1RF buspirone 5 mg tablet 5 mg PO BID Qty: 180 1RF NK Primary Care Provider: Sherlyn Shoemaker Referrals: Sherlyn Shoemaker MD [Primary Care Provider] - Print Language: Salvadorean Disposition Disposition: Psychiatric Hospital or Unit
[2023-11-26 12:35] LABS: Absolute Lymphocyte Count 1.53 X10^3/uL (0.83-4.51); Absolute Neutrophil Count 5.7 X10^3/uL (2.0-7.7); Basophil# 0.09 X10^3/uL; Basophil% 1.1 % (0-1); Eosinophil# 0.21 X10^3/uL; Eosinophils% 2.6 % (0-5); Hematocrit 37.3 % (37-47); Hemoglobin 12.1 g/dL (12.0-15.0); Lymphocyte # 1.53 X10^3/ul (0.83-4.51); Lymphocyte % 18.9 % (19-41); Mean Corp Hgb Conc 32.4 g/dL (32-36); Mean Corpuscular Hgb 24.5 pg (27.0-32.0); Mean Corpuscular Volume 75.5 fL (81-99); Mean Platelet Vol. 10.2 fl (6.2-12.0); Monocyte# 0.51 X10^3/uL; Monocyte% 6.3 % (0-10); NRBC Flagged by Analyzer 0 % (0-5); Neutrophil # 5.72 X10^3/uL (2.7-7.7); Neutrophil % 70.5 % (47-70); Platelet Count 264 K/mm3 (150-450); RBC Distribution Width CV 15.7 % (11.6-14.6); RBC Distribution Width SD 42.8 fl (35.1-43.9); Red Blood Count 4.94 M/mm3 (4.2-5.4); White Blood Count 8.1 K/mm3 (4.4-11.0)
[2023-11-26 12:41] LABS: Amphetamine Urine NEGATIVE (<1000 ng/mL); Barbiturate Urine NEGATIVE (< 200 ng/mL); Benzodiazepine Urine NEGATIVE (< 200 ng/mL); Cocaine Urine NEGATIVE (< 300 ng/mL); Ecstacy Urine NEGATIVE (< 500 ng/mL); Methadone Urine NEGATIVE (< 300 ng/mL); Opiates Urine NEGATIVE (< 300 ng/mL); PCP Urine NEGATIVE (< 25 ng/mL); THC Urine POSITIVE (< 50 ng/mL); Vista UDS pH Range 4
[2023-11-26 12:42] LABS: Internal QC Validated? YES +Cl - CLEAR BKGD; Pregnancy, Serum, hCG Quali. NEGATIVE Negative
[2023-11-26 12:46] LABS: Alcohol, Blood (Medical)-Serum < 3.0 mg/dL; Anion Gap 6 (5-15); BUN 13 mg/dL (7-18); BUN/Creat Ratio 22.6 RATIO (10-20); Calcium,Total 9.2 mg/dL (8.5-10.1); Chloride 111 mmol/L (98-107); Creatinine, Serum 0.57 mg/dL (0.55-1.02); EST Glomerular Filtration Rate 127 mL/min (>60); Est Glom Filt Rate - Afr Amer 153 mL/min (>60); Estimated Creatinine Clearance 135.49 ml/min; Glucose 97 mg/dL (74-106); Potassium 3.5 mmol/L (3.5-5.1); Sodium Level 139 mmol/L (136-145)
--- NOTE | 2023-11-26 13:09 | NURSING ---
FAXED CHART TO CRISIS TALKED TO CRISIS
--- NOTE | 2023-11-26 15:01 | NURSING ---
STELLA, CRISIS, CALLED. IT WILL BE A BIT BEFORE SHE COMES IN
[2023-11-26 16:24] VITALS: BP 114/75; PULSE 88; RESP 16; TEMP 37.1; O2SAT 98
--- NOTE | 2023-11-26 17:04 | NURSING ---
CRISIS IN ROOM
[2023-11-26 20:00] VITALS: BP 143/85; PULSE 83; RESP 18; O2SAT 98
[2023-11-27 04:00] VITALS: BP 126/80; PULSE 83; RESP 16; O2SAT 99
--- NOTE | 2023-11-27 05:05 | ED.RN ---
Report called, spoke to Herbie RN. Questions/concerns answered
[2023-11-27 07:22] VITALS: BP 126/80; PULSE 83; RESP 16; TEMP 37.1; O2SAT 99
== END 2023-11-27 07:23 ==
PROVIDERS: Emergency Provider Emergency Medicine; PCP Internal Medicine; Visit Provider Emergency Medicine
DX: F32.A Depression, unspecified (principal); T14.91XA Suicide attempt, initial encounter; F10.20 Alcohol dependence, uncomplicated; I10 Essential (primary) hypertension; F17.210 Nicotine dependence, cigarettes, uncomplicated; F12.90 Cannabis use, unspecified, uncomplicated; Z98.51 Tubal ligation status
CPT/HCPCS: 80048; 80307; 82077; 84703; 85025; 99284

== ENCOUNTER 2023-12-31 22:33 | Observation (INO) | payer BC, SELFPAY ==
[2023-12-31 22:35] VITALS: BP 152/99; PULSE 94; RESP 15; TEMP 36.6; O2SAT 98
--- NOTE | 2023-12-31 22:56 | EKG12_ITS ---
Test Reason : MHC Blood Pressure : / mmHG Vent. Rate : 095 BPM Atrial Rate : 095 BPM P-R Int : 164 ms QRS Dur : 084 ms QT Int : 318 ms P-R-T Axes : 059 024 060 degrees QTc Int : 399 ms Normal sinus rhythm Nonspecific T wave abnormality Abnormal ECG Confirmed by TIFF CLAUDIO, CARLOS ([id number]), field map editor HORTENSIA THAKUR ([id number]) on 01/07/2024 1:33:35 PM Referred By: Confirmed By:MARILYN MATTHEW MD
--- NOTE | 2023-12-31 22:56 | EX.ED.VIS.PS ---
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 Patient apparently texted her sister ranjith and told her that she took all her pills and said goodbye to her. Patient also has been drinking vodka. Patient tells me she was admitted about a month ago to a psychiatric facility. Patient states the ingestion occurred maybe 2 to 3 hours ago. She tells me she took fluoxetine as well as bupropion and drink vodka. She took Vraylar and amlodipine. She believes that she took 3 to 4 tablets of the fluoxetine 50 mg. She believes she took bupropion 150 mg total of 10 to 12 tablets. She think she took 3 pills of the Vraylar 1.5 mg. Patient also states that she took amlodipine 3 to 4 tablets but cannot tell me the dose. Patient denies auditory or visual hallucinations. Denies homicidal ideations. Patient just states that she has been stressed [facility] Medical History ADD (attention deficit disorder) OCD (obsessive compulsive disorder) Bipolar affect, depressed Vaginal candidiasis Insomnia Anxiety and depression Tobacco abuse counseling Venous insufficiency of both lower extremities Neck swelling Obesity (BMI 30-39.9) Hypertension Urinary incontinence Carpal tunnel syndrome Allergic dermatitis Home Medications ?Medication ?Instructions ?Recorded ?Last Taken ?Type bupropion HCl 150 mg 24 hr tablet, 150 mg PO QAM #90 tabs 11/06/23 11/25/23 Rx extended release (Wellbutrin XL) amlodipine 5 mg tablet 5 mg PO QDAY 12/10/23 Unknown History buspirone 5 mg tablet 10 mg PO BID 12/10/23 Unknown History cariprazine 1.5 mg capsule 1.5 mg PO QDAY 12/10/23 Unknown History (Vraylar) fluvoxamine 50 mg tablet 25 mg PO QHS 12/10/23 Unknown History trazodone 50 mg tablet 50 mg PO QHS 12/10/23 Unknown History Allergy/AdvReac Type Severity Reaction Status Date / Time No Known Allergies Allergy Verified 12/31/23 22:46 Family History Grandfather Myocardial infarction 60s or 70s Other Diabetes Mental disorder Suicide attempt Surgical History S/P wisdom tooth extraction H/O tubal ligation Hx of tubal ligation Social History number of children: 2 current occupational status: employed 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 Smoking Status: Current every day smoker tobacco type: cigarettes alcohol intake: never substance use type: does not use what type of physical activity do you participate in: walking frequency: 5-6 times per week seatbelt use: always do you feel safe at home: Yes additional social history: Single ROS ROS ED Review of Systems ROS Unobtainable: other Constitutional Constitutional ED: Reports lethargy; Denies chills, fever(s), sweats or weight loss Eyes Eyes: Denies blurry vision, change in vision or diplopia ENT ENT ED: Denies rhinorrhea or sore throat Cardiovascular Cardiovascular: Denies chest pain, orthopnea or racing heartbeat Respiratory/Chest Respiratory/Chest: Denies cough, dyspnea, dyspnea on exertion, orthopnea or sputum Gastrointestinal Gastrointestinal: Denies abdominal pain, diarrhea, nausea or vomiting Genitourinary Genitourinary ED: Denies dysuria, hematuria or urinary frequency Musculoskeletal Musculoskeletal: Denies arthralgias, back pain, myalgias or neck pain Integumentary Denies abscess, Abrasions or rash Neurologic Neurologic: Denies headache(s) or weakness Psychiatric Psychiatric: Reports depression and suicidal thoughts; Denies anxiety Endocrine Endocrinology: Denies polydipsia, polyphagia or polyuria Hematologic/Lymphatic Hematologic/Lymphatic: Denies easy bleeding, easy bruising or lymphadenopathy Allergic/Immunologic Allergic/Immunologic ED: Denies mouth swelling, tongue swelling or urticaria EXAM Physical Exam Const Vital Signs: 12/31/23 22:35 12/31/23 23:34 01/01/24 00:02 Temperature 98 F Temperature Source Temporal Pulse Rate 94 98 Respiratory Rate 15 16 Blood Pressure 152/99 H 117/66 109/65 Blood Pressure Mean 116 83 79 Pulse Ox 98 98 Oxygen Delivery Method Room Air Room Air 01/01/24 01:00 01/01/24 02:00 01/01/24 03:00 Temperature Temperature Source Pulse Rate 98 125 H 128 H Respiratory Rate 19 H 19 H 16 Blood Pressure 116/67 107/54 L 120/87 H Blood Pressure Mean 83 71 98 Pulse Ox 95 95 95 Oxygen Delivery Method Room Air Room Air Room Air 01/01/24 04:00 01/01/24 05:00 Temperature 98.3 F 98.1 F Temperature Source Oral Oral Pulse Rate 135 H 148 H Respiratory Rate 19 H 24 H Blood Pressure 118/67 124/61 H Blood Pressure Mean 84 82 Pulse Ox 95 98 Oxygen Delivery Method Room Air Room Air Positive well nourished and well developed General Appearance ED: well developed and NAD HEENT Reports TM's clear and moist mucous membranes normocephalic and atraumatic; Negative for trauma or tenderness Tympanic Membrane ED: Yes TM's clear Eyes PERRL and EOMs intact bilaterally General Eye ED: Negative for pale conjunctiva or scleral icterus Neck no lymphadenopathy, supple and no JVD General: Negative for tenderness Chest Wall inspection of chest normal and palpation of chest normal Chest: Negative for tenderness Resp normal respiratory effort and clear to auscultation bilaterally Effort and Inspection: Negative for respiratory distress or pain with movement Auscultation: Negative for rhonchi, wheezes or diminished lung sounds Cardio regular rate, regular rhythm, S1 normal heart sound, S2 normal heart sound and no murmurs Peripheral Pulses: pulses 2+ throughout GI normal to inspection, nondistended, normoactive bowel sounds, soft to palpation, non-tender, non-distended and no masses Back/Spine no CVA tenderness and no thoracic nor lumbar tenderness Extremity normal to inspection General Extremety ED: Negative for edema General Extremity: Negative for edema Neuro oriented x3, CN's II-XII intact bilaterally, no sensory deficits noted and gait normal Sensorium / Orientation: awake, alert, oriented to person, oriented to place and oriented to time Motor Exam: strength 5/5 throughout and strength abnormal Psych mental status grossly normal Skin no rashes or lesions noted and no wounds MDM MDM MDM Narrative Medical decision making narrative: Patient presents emergency department with ingestion and concern for thoughts of self-harm. She admits to ingesting fluoxetine as well as bupropion and Vraylar and amlodipine as well as drinking vodka with it. Patient apparently texted her sister and was saying goodbye and stated that she had taken all her pills. Patient had an IV line established. Apparently the ingestion occurred 2 to 3 hours prior to coming in. EKG obtained on arrival showed sinus rhythm with rate of [address] changes. CBC with differential white count 12.3 with hemoglobin 12.8 and platelet count of 291. Chemistries unremarkable. LFTs were normal. Talk screen was negative and alcohol was 197. Salicylate and Tylenol levels were negative. Patient was being observed in the emergency department and became progressively more tachycardic. She otherwise has no complaints. Discussed case with poison control and they felt she would need 24-hour admission for clearance. They felt tachycardia likely related to the bupropion. Case will be discussed with hospitalist to evaluate patient for admission. She will require evaluation by crisis for placement to psychiatric facility when she is medically cleared. Lab Data Attestation: I reviewed the patient's lab results. Labs: Laboratory Results - last 24 hr 12/31/23 23:02 WBC 12.3 H RBC 5.33 Hgb 12.8 Hct 40.0 MCV 75.0 L MCH 24.0 L MCHC 32.0 RDW Std Deviation 41.8 RDW Coeff of Bre 15.6 H Plt Count 291 MPV 10.7 Immature Gran % (Auto) 0.600 Neut % (Auto) 67.5 Lymph % (Auto) 21.9 [place] % (Auto) 7.4 Eos % (Auto) 1.7 Baso % (Auto) 0.9 Absolute Neuts (auto) 8.3 H Absolute Lymphs (auto) 2.70 Nucleated RBC % 0 Sodium 141 Potassium 3.5 Chloride 111 H Carbon Dioxide 19.0 L Anion Gap 11 BUN 9 Creatinine 0.75 Est GFR (MDRD) Af Amer 112 Est GFR (MDRD) Non-Af 93 BUN/Creatinine Ratio 12.0 Glucose 136 H Calcium 9.2 Total Bilirubin 0.50 AST 15 ALT 22 Alkaline Phosphatase 72 Total Protein 8.2 Albumin 3.9 Globulin 4.3 H Albumin/Globulin Ratio 0.9 Serum , Qual NEGATIVE Salicylates < 1.7 L Urine Opiates Screen NEGATIVE Urine Methadone Screen NEGATIVE Acetaminophen < 2.0 L Ur Barbiturates Screen NEGATIVE Ur Phencyclidine Scrn NEGATIVE Ur Amphetamines Screen NEGATIVE MDMA (Ecstasy) Screen NEGATIVE U Benzodiazepines Scrn NEGATIVE Urine Cocaine Screen NEGATIVE U Cannabinoids Screen NEGATIVE Ur Drug Screen Comment Ethyl Alcohol 197.0 EKG Initial EKG: Attestation: I personally reviewed and interpreted this EKG as follows: Comments: Sinus rhythm with ventricular rate of [address] changes Discharge Plan Triage Chief Complaint: Suicidal ED Provider: Thi Gomez Dx/Rx/DC Orders Clinical Impression: Acute drug overdose, Suicidal ideation, Depression Prescriptions: No Action bupropion HCl [Wellbutrin XL] 150 mg tablet extended release 24 hr 150 mg PO QAM Qty: 90 1RF buspirone 5 mg tablet 10 mg PO BID Vraylar 1.5 mg capsule 1.5 mg PO QDAY trazodone 50 mg tablet 50 mg PO QHS amlodipine 5 mg tablet 5 mg PO QDAY fluvoxamine 50 mg tablet 25 mg PO QHS Primary Care Provider: Sherlyn Shoemaker Referrals: Sherlyn Shoemaker MD [Primary Care Provider] - Print Language: Hungarian Disposition Disposition: Acute Care Hospital [facility]
[2023-12-31 23:19] LABS: Absolute Neutrophil Count 8.3 X10^3/uL (2.0-7.7); Basophil# 0.11 X10^3/uL; Basophil% 0.9 % (0-1); Eosinophil# 0.21 X10^3/uL; Eosinophils% 1.7 % (0-5); Hemoglobin 12.8 g/dL (12.0-15.0); Lymphocyte % 21.9 % (19-41); Mean Platelet Vol. 10.7 fl (6.2-12.0); Monocyte# 0.91 X10^3/uL; Monocyte% 7.4 % (0-10); NRBC Flagged by Analyzer 0 % (0-5); Neutrophil % 67.5 % (47-70); Platelet Count 291 K/mm3 (150-450); RBC Distribution Width CV 15.6 % (11.6-14.6); RBC Distribution Width SD 41.8 fl (35.1-43.9); Red Blood Count 5.33 M/mm3 (4.2-5.4); White Blood Count 12.3 K/mm3 (4.4-11.0)
[2023-12-31 23:32] LABS: Internal QC Validated? YES +Cl - CLEAR BKGD; Pregnancy, Serum, hCG Quali. NEGATIVE Negative
[2023-12-31 23:34] VITALS: BP 117/66
[2023-12-31 23:39] LABS: ALB/GLOB Ratio 0.9 RATIO (0.9-2.4); AST(SGOT) 15 U/L (15-37); Alanine Aminotransfer ALT/SGPT 22 U/L (13-56); Albumin, Serum 3.9 g/dL (3.2-5.0); Alkaline Phosphatase 72 U/L (45-117); Anion Gap 11 (5-15); BUN 9 mg/dL (7-18); Calcium,Total 9.2 mg/dL (8.5-10.1); Chloride 111 mmol/L (98-107); Creatinine, Serum 0.75 mg/dL (0.55-1.02); EST Glomerular Filtration Rate 93 mL/min (>60); Est Glom Filt Rate - Afr Amer 112 mL/min (>60); Globulin 4.3 g/dL (2.2-4.2); Glucose 136 mg/dL (74-106); Potassium 3.5 mmol/L (3.5-5.1); Protein, Total 8.2 g/dL (6.4-8.2); Sodium Level 141 mmol/L (136-145)
[2023-12-31] MEDS: Ondansetron 4 MG/2 ML Vial IV (23:50)
[2023-12-31 23:56] LABS: Salicylate < 1.7 mg/dL (2.8-20.0)
[2023-12-31 23:58] LABS: Amphetamine Urine VISTA NEGATIVE (<1000 ng/mL); Barbiturate Urine VISTA NEGATIVE (< 200 ng/mL); Benzodiazepine Urine VISTA NEGATIVE (< 200 ng/mL); Cocaine Urine VISTA NEGATIVE (< 300 ng/mL); Ecstacy Urine VISTA NEGATIVE (< 500 ng/mL); Methadone Urine VISTA NEGATIVE (< 300 ng/mL); PCP Urine VISTA NEGATIVE (< 25 ng/mL); THC Urine VISTA NEGATIVE (< 50 ng/mL); Vista UDS pH Range 6
[2024-01-01] VITALS (26 sets, daily range): BP systolic 103–142; BP diastolic 54–89; PULSE 94–148; RESP 15–35; TEMP 36.6–37.2; O2SAT 95–100; BMI 39.9
[2024-01-01 00:03] LABS: Acetaminophen (Tylenol) Level < 2.0 ug/mL (10.0-30.0)
[2024-01-01] MEDS: 0.9% Normal Saline (1000mL) 1,000 ML 1000 ML IV (05:38)
--- NOTE | 2024-01-01 05:40 | EKG12_ITS ---
Test Reason : DYSRHYTHMIA Blood Pressure : / mmHG Vent. Rate : 148 BPM Atrial Rate : 148 BPM P-R Int : 104 ms QRS Dur : 074 ms QT Int : 334 ms P-R-T Axes : 081 030 069 degrees QTc Int : 524 ms Critical Test Result: High HR Sinus tachycardia with short HI Nonspecific T wave abnormality Abnormal ECG Confirmed by TIFF CLAUDIO, CARLOS ([id number]), movie editor HORTENSIA THAKUR ([id number]) on 01/07/2024 1:34:05 PM Referred By: GEMMA Confirmed By:MARILYN MATTHEW MD
--- NOTE | 2024-01-01 05:58 | HP.PCM.HOS_ITS ---
HPI - General General Date of Admission: 01/01/24 Date of Service: 01/01/24 Chief Complaint: Intentional prescription drug overdose with persistent tachycardia HPI Narrative CHENTE HUNT, is a 38 F who presented to [facility] ED on 01/01/2024 after an intentional prescription drug overdose. Patient has history of depression with prior suicide attempts. Last intentional prescription drug overdose was about 1 month ago. She came to our ED for this, was seen by crisis and pink slipped and then went to [place] inpatient psychiatric facility. Patient's current home medications are amlodipine, bupropion, BuSpar, cariprazine, fluvoxamine and trazodone. Patient told ED staff that she took approximately 3-4 fluvoxamine, 10-12 bupropion, 3 cariprazine and 3-4 amlodipine. She took these about 2-3 hours prior to coming in. She was also drinking vodka and her alcohol level in ED was 197. Patient was hemodynamically stable for first 3 to 4 hours in the ED but then started to become more tachycardic. She remained persistently tachycardic in the 140s, so ED physician called crisis who recommended the patient be admitted for observation. I saw the patient at bedside in the ED. She was sitting up comfortably in bed, conversing normally, in no acute distress. Her heart rate was maintaining in the 140s consistently. EKG was done shortly before I saw the patient and appears to show simple sinus tachycardia, no other concerning findings. Patient reports feeling like her heart is racing but denies any chest pain or significant discomfort with this. States she has a mild headache but denies any other acute symptoms at this time. Blood pressure was normotensive and vitals were otherwise unremarkable. Labs notable for WBC count 12.3, sodium 141, chloride 111, bicarb 19, no anion gap, otherwise unremarkable. No imaging was required in the ED. [facility] Medical History ADD (attention deficit disorder) OCD (obsessive compulsive disorder) Bipolar affect, depressed Vaginal candidiasis Insomnia Anxiety and depression Tobacco abuse counseling Venous insufficiency of both lower extremities Neck swelling Obesity (BMI 30-39.9) Hypertension Urinary incontinence Carpal tunnel syndrome Allergic dermatitis Home Medications ?Medication ?Instructions ?Recorded ?Last Taken ?Type bupropion HCl 150 mg 24 hr tablet, 150 mg PO QAM #90 tabs 11/06/23 11/25/23 Rx extended release (Wellbutrin XL) amlodipine 5 mg tablet 5 mg PO QDAY 12/10/23 Unknown History buspirone 5 mg tablet 10 mg PO BID 12/10/23 Unknown History cariprazine 1.5 mg capsule 1.5 mg PO QDAY 12/10/23 Unknown History (Vraylar) fluvoxamine 50 mg tablet 25 mg PO QHS 12/10/23 Unknown History trazodone 50 mg tablet 50 mg PO QHS 12/10/23 Unknown History Allergy/AdvReac Type Severity Reaction Status Date / Time No Known Allergies Allergy Verified 12/31/23 22:46 Family History Grandfather Myocardial infarction 60s or 70s Other Diabetes Mental disorder Suicide attempt Surgical History S/P wisdom tooth extraction H/O tubal ligation Hx of tubal ligation Social History number of children: 2 current occupational status: employed 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 Smoking Status: Current every day smoker tobacco type: cigarettes alcohol intake: never substance use type: does not use what type of physical activity do you participate in: walking frequency: 5-6 times per week seatbelt use: always do you feel safe at home: Yes additional social history: Single ROS Constitutional Constitutional: Denies chills, fatigue, fever(s) or weakness Eyes Eyes: Denies change in vision Cardiovascular Cardiovascular: Reports rapid heart rate; Denies chest pain or lightheadedness Respiratory/Chest Respiratory/Chest: Denies shortness of breath at rest Gastrointestinal Gastrointestinal: Denies abdominal pain Neurologic Neurologic: Reports headache(s); Denies dizziness, focal weakness, numbness or paresthesias Psychiatric Psychiatric: Reports depression Vital Signs Vital Signs Vital Signs: 12/31/23 22:35 12/31/23 23:34 01/01/24 00:02 Temperature 98 F Temperature Source Temporal Pulse Rate 94 98 Respiratory Rate 15 16 Blood Pressure 152/99 H 117/66 109/65 Blood Pressure Mean 116 83 79 Pulse Ox 98 98 Oxygen Delivery Method Room Air Room Air 01/01/24 01:00 01/01/24 02:00 01/01/24 03:00 Temperature Temperature Source Pulse Rate 98 125 H 128 H Respiratory Rate 19 H 19 H 16 Blood Pressure 116/67 107/54 L 120/87 H Blood Pressure Mean 83 71 98 Pulse Ox 95 95 95 Oxygen Delivery Method Room Air Room Air Room Air 01/01/24 04:00 01/01/24 05:00 01/01/24 05:49 Temperature 98.3 F 98.1 F 98.1 F Temperature Source Oral Oral Pulse Rate 135 H 148 H 145 H Respiratory Rate 19 H 24 H 27 H Blood Pressure 118/67 124/61 H 124/61 H Blood Pressure Mean 84 82 82 Pulse Ox 95 98 98 Oxygen Delivery Method Room Air Room Air Physical Exam Const alert, oriented x3 and no apparent distress Constitutional Narrative: Pleasant younger female, obese, sitting up comfortably in bed, conversing normally, in no acute distress. General Appearance: cooperative and comfortable HEENT normocephalic, head/scalp atraumatic, hearing grossly normal bilaterally, nasal mucous membranes and turbinates normal and moist oral mucous membranes Eyes PERRL, EOMs intact bilaterally and conjunctivae normal Neck full ROM Chest inspection of chest normal Resp normal respiratory effort, normal air movement, no use of accessory muscles and clear to auscultation bilaterally Cardio no murmurs and peripheral pulses 2+ throughout Cardio Narrative: Tachycardic, regular rhythm. GI normal to inspection, nondistended, normoactive bowel sounds, soft to palpation, non-tender and non-distended Back/Spine normal ROM Extremity normal to inspection, full ROM and no pedal edema Skin no rashes or lesions noted Neuro moves all extremities and no focal motor deficits Speech: speech normal Psych mental status grossly normal Results Lab / Micro Data 12/31/23 23:02 12/31/23 23:02 Labs: Laboratory Results - last 24 hr 12/31/23 23:02: WBC 12.3 H, RBC 5.33, Hgb 12.8, Hct 40.0, MCV 75.0 L, MCH 24.0 L , MCHC 32.0, RDW Std Deviation 41.8, RDW Coeff of Bre 15.6 H, Plt Count 291, MPV 10.7, Immature Gran % (Auto) 0.600, Neut % (Auto) 67.5, Lymph % (Auto) 21.9, [place] % (Auto) 7.4, Eos % (Auto) 1.7, Baso % (Auto) 0.9, Absolute Neuts (auto) 8.3 H, Absolute Lymphs (auto) 2.70, Nucleated RBC % 0, Sodium 141, Potassium 3.5, Chloride 111 H, Carbon Dioxide 19.0 L, Anion Gap 11, BUN 9, Creatinine 0.75, Est GFR (MDRD) Af Amer 112, Est GFR (MDRD) Non-Af 93, BUN/Creatinine Ratio 12.0, Glucose 136 H, Calcium 9.2, Total Bilirubin 0.50, AST 15, ALT 22, Alkaline Phosphatase 72, Total Protein 8.2, Albumin 3.9, Globulin 4.3 H, Albumin/Globulin Ratio 0.9, Serum , Qual NEGATIVE, Salicylates < 1.7 L, Urine Opiates Screen NEGATIVE, Urine Methadone Screen NEGATIVE, Acetaminophen < 2.0 L, Ur Barbiturates Screen NEGATIVE, Ur Phencyclidine Scrn NEGATIVE, Ur Amphetamines Screen NEGATIVE, MDMA (Ecstasy) Screen NEGATIVE, U Benzodiazepines Scrn NEGATIVE, Urine Cocaine Screen NEGATIVE, U Cannabinoids Screen NEGATIVE, Ur Drug Screen Comment , Ethyl Alcohol 197.0 Assessment & Plan Assessment/Plan (1) Acute drug overdose: (2) Suicidal ideation: (3) Sinus tachycardia: PLAN: Plan Patient is a 38-year-old female who presented to [facility] ED on 01/01/2024 for an intentional prescription drug overdose. 1. Persistent sinus tachycardia in setting of intentional prescription drug overdose, history of depression with prior suicide attempts ? Admit under observation status to ICU. Case management consulted. [place] slip signed in the ED, planning for transfer to inpatient psych facility once medically stable. Suspect persistent sinus tachycardia is primarily due to bupropion overdose. Was given 1 L of IV fluids in the ED without any improvement in tachycardia, will hold on further fluids for now. Patient normotensive; can consider trying rate controlling agent to slow heart rate but have concern this could also drop patient's blood pressure, and suspect sinus tachycardia will improve with time as bupropion washes out. Of note, other potential complications of bupropion overdose include seizures, QTc prolongation and serotonin toxicity. QTc was normal on most recent EKG. Monitor closely for now. 2. Hypertension ? Has remained normotensive since arrival to ED. Holding home amlodipine for now as noted above. DVT prophylaxis: Low risk, ambulate CODE STATUS: Full code, unverified Expected disposition: Inpatient psych facility, 1 to 2 days Total clinical time spent by myself addressing the patient's medical issues, reviewing all the data, and collaborating with patient's care team: 55 minutes. Charges/Coding Visit Charges Inpatient E&M: 56634 Init Hosp L2
--- NOTE | 2024-01-01 08:43 | EKG12_ITS ---
Test Reason : TACHYCARDIA Blood Pressure : / mmHG Vent. Rate : 137 BPM Atrial Rate : 137 BPM P-R Int : 154 ms QRS Dur : 074 ms QT Int : 254 ms P-R-T Axes : 075 028 055 degrees QTc Int : 383 ms Sinus tachycardia Nonspecific T wave abnormality Abnormal ECG When compared with ECG of 01-JAN-2024 05:44, MANUAL COMPARISON REQUIRED, DATA IS UNCONFIRMED Confirmed by TIFF CLAUDIO, CARLOS ([id number]), editor sound HORTENSIA THAKUR ([id number]) on 01/07/2024 2:07:01 PM Referred By: MARA Confirmed By:MARILYN MATTHEW MD
[2024-01-01] MEDS: Metoprolol Tartrate 5 MG/5 ML Vial IV (09:24)
[2024-01-01] MEDS: Metoprolol(XL)Succ 25 MG Tablet PO (11:14)
[2024-01-01] MEDS: Ibuprofen 400 MG Tablet PO (13:57)
--- NOTE | 2024-01-01 14:15 | PN.HOSP_ITS ---
Reason for Visit Reason for Visit: Diagnoses Tachycardia, unspecified (01/01/24) Suicidal ideations (01/01/24) Poisoning by unspecified drugs, medicaments and biological substances, accidental (unintentional), initial encounter (01/01/24) Objective Data Objective Data Vital Signs: Vital Signs Temp Pulse Resp BP Pulse Ox O2 Del Method 98.0 F 143 H 35 H 103/70 98 Room Air 01/01/24 07:26 01/01/24 07:26 01/01/24 07:26 01/01/24 07:26 01/01/24 07:26 01/01/24 07:26 Oxygen Delivery Method Room Air Weight: 197 lb 12.074 oz Body Mass Index (BMI) 39.9 Intake & Output: Intake and Output for Last 24 Hours 12/30/23 12/31/23 01/01/24 23:59 23:59 23:59 Intake Total 1000 / 1000 Balance 1000 / 1000 Lab / Micro Data 12/31/23 23:02 12/31/23 23:02 Labs: Laboratory Results - last 24 hr 12/31/23 23:02: WBC 12.3 H, RBC 5.33, Hgb 12.8, Hct 40.0, MCV 75.0 L, MCH 24.0 L , MCHC 32.0, RDW Std Deviation 41.8, RDW Coeff of Bre 15.6 H, Plt Count 291, MPV 10.7, Immature Gran % (Auto) 0.600, Neut % (Auto) 67.5, Lymph % (Auto) 21.9, [place] % (Auto) 7.4, Eos % (Auto) 1.7, Baso % (Auto) 0.9, Absolute Neuts (auto) 8.3 H, Absolute Lymphs (auto) 2.70, Nucleated RBC % 0, Sodium 141, Potassium 3.5, Chloride 111 H, Carbon Dioxide 19.0 L, Anion Gap 11, BUN 9, Creatinine 0.75, Est GFR (MDRD) Af Amer 112, Est GFR (MDRD) Non-Af 93, BUN/Creatinine Ratio 12.0, Glucose 136 H, Calcium 9.2, Total Bilirubin 0.50, AST 15, ALT 22, Alkaline Phosphatase 72, Total Protein 8.2, Albumin 3.9, Globulin 4.3 H, Albumin/Globulin Ratio 0.9, Serum , Qual NEGATIVE, Salicylates < 1.7 L, Urine Opiates Screen NEGATIVE, Urine Methadone Screen NEGATIVE, Acetaminophen < 2.0 L, Ur Barbiturates Screen NEGATIVE, Ur Phencyclidine Scrn NEGATIVE, Ur Amphetamines Screen NEGATIVE, MDMA (Ecstasy) Screen NEGATIVE, U Benzodiazepines Scrn NEGATIVE, Urine Cocaine Screen NEGATIVE, U Cannabinoids Screen NEGATIVE, Ur Drug Screen Comment , Ethyl Alcohol 197.0 01/01/24 05:51: Ethyl Alcohol 52.0 Physical Exam Narrative Patient is states she intentional overdose bunch of different medications. Currently having persistent tachycardia heart rate 147 to 150/min. Normally her heart rate and blood pressure are controlled. She takes antihypertensive medication. Has sitter nearby for Physical exam General: Alert, Oriented x3, Cooperative HEENT: Atraumatic, PERRLA, EOMI, Normocephalic Oral: No Gingival or Mucosal Lesions/ Ulcerations Neck: Supple, No JVD, Negative Carotid Bruits Chest wall/Lungs: Air entry diminished in bilateral lung bases. No crepitation/rhonchi Cardiovascular: Regular rate, Regular Rhythm, Normal S1, Normal S2, No M/G/R Abdomen: Bowel Sounds Present, Soft, Non Tender, Non-Distended : No dysuria. No renal angle tenderness. No suprapubic tenderness. Extremities: No edema, Capillary Refill Less than 3 Seconds Skin: No rashes, No breakdown Musculoskeletal: No Tenderness to Palpation of Joints or Extremities Neurological: Cranial nerves II-XII grossly intact, DTR 2+/4. No acute focal neurological deficit. Psych/Mental Status: Flat affect, sad and depressed. Suicidal attempt. Assessment & Plan Assessment/Plan (1) Acute drug overdose: (2) Suicidal ideation: (3) Sinus tachycardia: PLAN: Plan Patient is a 38-year-old female who presented to [facility] ED on 01/01/2024 for an intentional prescription drug overdose. Last prescription drug overdose was about a month ago. History of severe depression with prior suicide attempts. she took approximately 3-4 fluvoxamine, 10-12 bupropion, 3 cariprazine and 3-4 amlodipine. She took these about 2-3 hours prior to coming in. She also said that she drinks vodka every day about 5 shots. 1. Persistent sinus tachycardia in setting of intentional prescription drug overdose, history of depression with prior suicide attempts ? Admit under observation status to ICU. Case management consulted. [place] slip signed in the ED, planning for transfer to inpatient psych facility once medically stable. Continue IV fluid. Monitor potential side/adverse effect including seizures QTs prolongation and serotonin syndrome. QTc normal most recent EKG. 2. Hypertension ? Has remained normotensive since arrival to ED. Holding home amlodipine for now as noted above. DVT prophylaxis: Low risk, ambulate CODE STATUS: Full code, unverified Expected disposition: Inpatient psych facility, 1 to 2 days Charges/Coding Visit Charges Inpatient E&M: 11988 Subs Hosp L3
--- NOTE | 2024-01-01 15:38 | NURSING ---
Call received from Poison Control regarding follow up for care. This nurse gave an update regarding patient status, abd discomfort, and tachycardia episodes. Noted to watch closely for seizure occurrence d/t the increased amount of bupropion taken.
[2024-01-01] MEDS: Pantoprazole Sodium 40 MG Tablet PO (16:32)
--- NOTE | 2024-01-01 18:06 | NURSING ---
Called report to [facility] for room transfer to [facility].
[2024-01-01] MEDS: Ondansetron 4 MG/2 ML Vial IV (19:56)
[2024-01-01] MEDS: 0.9% Saline Lock 10 ML Syringe IV (19:57)
--- NOTE | 2024-01-01 22:14 | NURSING ---
Poison Control called. Review vitals and let her know that patient was sleeping. Poison control asked about a repeat EKG. This RN said she had already had three EKGS. Poison Control said at this point, monitor her since she still seems drowsy, but with her vitals being stable and otherwise being stable, just call Poison Control if anything else changes.
[2024-01-02] VITALS (11 sets, daily range): BP systolic 107–146; BP diastolic 60–88; PULSE 75–96; RESP 15–18; TEMP 36.4–37.2; O2SAT 98–100; BMI 39.8
--- NOTE | 2024-01-02 07:30 | PCM.PN.HOSP ---
Reason for Visit Reason for Visit: Diagnoses Tachycardia, unspecified (01/01/24) Suicidal ideations (01/01/24) Poisoning by unspecified drugs, medicaments and biological substances, accidental (unintentional), initial encounter (01/01/24) Objective Data Objective Data Vital Signs: Vital Signs Temp Pulse Resp BP Pulse Ox O2 Del Method 98.7 F 96 15 107/60 100 Room Air 01/02/24 04:10 01/02/24 04:10 01/02/24 04:10 01/02/24 04:10 01/02/24 04:10 01/02/24 04:10 Oxygen Delivery Method Room Air Weight: 197 lb 8.547 oz Body Mass Index (BMI) 39.8 Intake & Output: Intake and Output for Last 24 Hours 12/31/23 01/01/24 01/02/24 23:59 23:59 23:59 Intake Total 2080 / 2080 Output Total 1250 / 1250 Balance 830 / 830 Lab / Micro Data 12/31/23 23:02 12/31/23 23:02 Physical Exam Narrative Seen and examined. Patient is feeling good. Denies palpitation. She has chronic mild abdominal discomfort for a long time unclear whether it is functional but patient is not concerned at this time. No other associated abdominal symptoms. Did not had bowel movement but she states she will have shortly. The patient was admitted with intentional overdose bunch of different medications. The patient has sitter nearby for Physical exam General: Alert, Oriented x3, Cooperative HEENT: Atraumatic, PERRLA, EOMI, Normocephalic Oral: No Gingival or Mucosal Lesions/ Ulcerations Neck: Supple, No JVD, Negative Carotid Bruits Chest wall/Lungs: Air entry diminished in bilateral lung bases. No crepitation/rhonchi Cardiovascular: Regular rate, Regular Rhythm, Normal S1, Normal S2, No M/G/R Abdomen: Bowel Sounds Present, Soft, Non Tender, Non-Distended : No dysuria. No renal angle tenderness. No suprapubic tenderness. Extremities: No edema, Capillary Refill Less than 3 Seconds Skin: No rashes, No breakdown Musculoskeletal: No Tenderness to Palpation of Joints or Extremities Neurological: Cranial nerves II-XII grossly intact, DTR 2+/4. No acute focal neurological deficit. Psych/Mental Status: Flat affect, sad and depressed. Suicidal attempt. Assessment & Plan Assessment/Plan (1) Acute drug overdose: (2) Suicidal ideation: (3) Sinus tachycardia: PLAN: Plan Patient is a 38-year-old female who presented to [facility] ED on 01/01/2024 for an intentional prescription drug overdose. Last prescription drug overdose was about a month ago. History of severe depression with prior suicide attempts. she took approximately 3-4 fluvoxamine, 10-12 bupropion, 3 cariprazine and 3-4 amlodipine. She took these about 2-3 hours prior to coming in. She also said that she drinks vodka every day about 5 shots. 1. Persistent sinus tachycardia in setting of intentional prescription drug overdose, history of depression with prior suicide attempts ? Admit under observation status to ICU. Case management consulted. [place] slip signed in the ED, planning for transfer to inpatient psych facility once medically stable. Continue IV fluid. Monitor potential side/adverse effect including seizures QTs prolongation and serotonin syndrome. QTc normal most recent EKG. 01/01: Sinus tachycardia has resolved. Heart rate 90/min. Was not started on metoprolol succinate 25 mg daily yesterday and is doing good. Patient is medically cleared for evaluation of crisis management team. 2. Hypertension ? Has remained normotensive since arrival to ED. 01/01 blood pressure systolic in 140s. Resume amlodipine. DVT prophylaxis: Low risk, ambulate CODE STATUS: Full code, unverified Charges/Coding Visit Charges Inpatient E&M: 79599 Subs Hosp L2
[2024-01-02] MEDS: Acetaminophen 325 MG Tablet 650 MG PO (08:24)
[2024-01-02] MEDS: Pantoprazole Sodium 40 MG Tablet PO (08:24)
[2024-01-02] MEDS: Ondansetron 4 MG/2 ML Vial IV ×2 (08:24→23:59)
[2024-01-02] MEDS: 0.9% Saline Lock 10 ML Syringe IV (08:25)
--- NOTE | 2024-01-02 09:26 | CASEMGMT ---
Social Work- SW called [facility] and spoke with Esthela to complete referral. ALE faxed information to [facility]. GORGE Jacobs
[2024-01-02] MEDS: Metoprolol(XL)Succ 25 MG Tablet PO (12:21)
[2024-01-02] MEDS: amLODIPine 5 MG Tablet PO (12:21)
[2024-01-02 12:36] LABS: Absolute Lymphocyte Count 1.23 X10^3/uL (0.83-4.51); Absolute Neutrophil Count 7.2 X10^3/uL (2.0-7.7); Basophil# 0.09 X10^3/uL; Eosinophil# 0.14 X10^3/uL; Eosinophils% 1.5 % (0-5); Hematocrit 37.2 % (37-47); Hemoglobin 12.1 g/dL (12.0-15.0); Lymphocyte # 1.23 X10^3/ul (0.83-4.51); Lymphocyte % 13.1 % (19-41); Mean Corp Hgb Conc 32.5 g/dL (32-36); Mean Corpuscular Hgb 24.3 pg (27.0-32.0); Mean Corpuscular Volume 74.7 fL (81-99); Mean Platelet Vol. 10.4 fl (6.2-12.0); Monocyte# 0.66 X10^3/uL; Monocyte% 7.1 % (0-10); NRBC Flagged by Analyzer 0 % (0-5); Neutrophil # 7.19 X10^3/uL (2.7-7.7); Neutrophil % 76.8 % (47-70); Platelet Count 257 K/mm3 (150-450); RBC Distribution Width CV 15.7 % (11.6-14.6); RBC Distribution Width SD 41.7 fl (35.1-43.9); Red Blood Count 4.98 M/mm3 (4.2-5.4); White Blood Count 9.4 K/mm3 (4.4-11.0)
[2024-01-02 13:18] LABS: AST(SGOT) 14 U/L (15-37); Alanine Aminotransfer ALT/SGPT 21 U/L (13-56); Albumin, Serum 3.8 g/dL (3.2-5.0); Alkaline Phosphatase 64 U/L (45-117); Anion Gap 6 (5-15); BUN 8 mg/dL (7-18); BUN/Creat Ratio 11.7 RATIO (10-20); Calcium,Total 9.2 mg/dL (8.5-10.1); Chloride 107 mmol/L (98-107); Creatinine, Serum 0.68 mg/dL (0.55-1.02); EST Glomerular Filtration Rate 104 mL/min (>60); Est Glom Filt Rate - Afr Amer 125 mL/min (>60); Globulin 3.7 g/dL (2.2-4.2); Glucose 111 mg/dL (74-106); Potassium 3.4 mmol/L (3.5-5.1); Protein, Total 7.5 g/dL (6.4-8.2); Sodium Level 135 mmol/L (136-145)
[2024-01-02] MEDS: MELATONIN 3 MG TABLET PO (21:05)
--- NOTE | 2024-01-02 21:55 | NURSING ---
Adina Eddy called. Their provider is evaluating whether they will accept Marii Bre. Patient Health Summary, EKGs, nursing note regarding poison control, and three last set of vitals faxed to [phone].
--- NOTE | 2024-01-02 22:36 | NURSING ---
Paige called from [facility]. They are going to accept Marii Díaz. She will be placed on the [facility]. Nurse Pracitioner Asha Sexton is the accepting provider. Address for the facility is [facility], [address] [place] [address]. Phone number to call report is [phone].
--- NOTE | 2024-01-02 23:12 | EKG12_ITS ---
Test Reason : medical clearance Blood Pressure : / mmHG Vent. Rate : 079 BPM Atrial Rate : 079 BPM P-R Int : 166 ms QRS Dur : 082 ms QT Int : 390 ms P-R-T Axes : 060 015 030 degrees QTc Int : 447 ms Normal sinus rhythm Nonspecific T wave abnormality Abnormal ECG Confirmed by TIFF CLAUDIO, CARLOS ([id number]), editor & co founder EDDIE REDDY ([id number]) on 01/07/2024 1:45:47 PM Referred By: Confirmed By:MARILYN MATTHEW MD
--- NOTE | 2024-01-03 00:32 | NURSING ---
[facility] FA[facility] AT THIS TIME
--- NOTE | 2024-01-03 01:07 | NURSING ---
[facility] will transfer Marii Díaz to [facility] 01/03/24 at 0700.
[2024-01-03 02:00] VITALS: PULSE 75
[2024-01-03 05:00] VITALS: PULSE 75
[2024-01-03 05:06] VITALS: BP 103/65; PULSE 74; RESP 15; TEMP 37.1; O2SAT 99
[2024-01-03 06:00] VITALS: PULSE 70
--- NOTE | 2024-01-03 10:46 | PCM.DC.SUM ---
Providers Date of Admission: 01/01/24 Date of Discharge: 01/03/24 Primary Care Physician: Dr. Sherlyn Shoemaker MD Reason For Visit: ACUTE DRUG OVERDOSE WITH PERSISITENT TACHYCARDIA Diagnosis Discharge Diagnosis (1) Acute drug overdose: Status: Acute Code(s): T50.901A - Poisoning by unspecified drugs, medicaments and biological substances, accidental (unintentional), initial encounter (2) Suicidal ideation: Status: Acute Code(s): R45.851 - Suicidal ideations (3) Sinus tachycardia: Status: Acute Code(s): R00.0 - Tachycardia, unspecified Plan Patient is a 38-year-old female who presented to [facility] ED on 01/01/2024 for an intentional prescription drug overdose. Last prescription drug overdose was about a month ago. History of severe depression with prior suicide attempts. she took approximately 3-4 fluvoxamine, 10-12 bupropion, 3 cariprazine and 3-4 amlodipine. She took these about 2-3 hours prior to coming in. She also said that she drinks vodka every day about 5 shots. 1. Persistent sinus tachycardia in setting of intentional prescription drug overdose, history of depression with prior suicide attempts ? Admit under observation status to ICU. Case management consulted. [place] slip signed in the ED, planning for transfer to inpatient psych facility once medically stable. Continue IV fluid. Monitor potential side/adverse effect including seizures QTs prolongation and serotonin syndrome. QTc normal most recent EKG. 01/01: Sinus tachycardia has resolved. Heart rate 90/min. Was not started on metoprolol succinate 25 mg daily yesterday and is doing good. Patient is medically cleared for evaluation of crisis management team. 01/02: Patient was discharged before I came back to 7 AM. Patient went to inpatient psych facility for treatment of severe depression with suicidal attempt. 2. Hypertension ? Has remained normotensive since arrival to ED. 01/01 blood pressure systolic in 140s. Resume amlodipine. DVT prophylaxis: Low risk, ambulate CODE STATUS: Full code, unverified Discharge medication reconciliation done. Discharge follow-up instructions completed. Discharge process discussed with the patient and all questions were answered to patient's satisfaction. Follow with PCP in 1 to 2 weeks Total time spent, exact 35 minutes on discharge meds reconciliation, examination, coordination of care with nurses and ancillary staff, review of imaging and blood test and discussion with the patient on follow-up instructions. 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 Weight / BMI Weight Weight: 197 lb 8.547 oz Body Mass Index (BMI) 39.8 ABG / Lab / Microbiology Data 01/02/24 12:23 01/02/24 12:23 Laboratory: Laboratory Results - last 24 hr 01/02/24 12:23: WBC 9.4, RBC 4.98, Hgb 12.1, Hct 37.2, MCV 74.7 L, MCH 24.3 L, MCHC 32.5, RDW Std Deviation 41.7, RDW Coeff of Bre 15.7 H, Plt Count 257, MPV 10.4, Immature Gran % (Auto) 0.500, Neut % (Auto) 76.8 H, Lymph % (Auto) 13.1 L, [place] % (Auto) 7.1, Eos % (Auto) 1.5, Baso % (Auto) 1.0, Absolute Neuts (auto) 7.2, Absolute Lymphs (auto) 1.23, Nucleated RBC % 0, Sodium 135 L, Potassium 3.4 L, Chloride 107, Carbon Dioxide 22.0, Anion Gap 6, BUN 8, Creatinine 0.68, Estim Creat Clear Calc 114.00, Est GFR (MDRD) Af Amer 125, Est GFR (MDRD) Non-Af 104, BUN/Creatinine Ratio 11.7, Glucose 111 H, Calcium 9.2, Total Bilirubin 1.70 H, AST 14 L, ALT 21, Alkaline Phosphatase 64, Total Protein 7.5, Albumin 3.8, Globulin 3.7, Albumin/Globulin Ratio 1.0 Meaningful Use Info Meaningful Use Meaningful Use Diagnoses (Choose all that apply): None applicable Ischemic Stroke Statin Dosing Therapy Reference: STATIN DOSE THERAPY REFERENCE: * Patients > 75 years receive moderate or high dose statin therapy. * Patients 75 years or YOUNGER should receive HIGH intensity statin dose unless contraindicated. You will be required to document reason for non-treatment if statin daily dose does not meet guidelines. HIGH DOSE STATIN THERAPY DAILY Atorvastatin > than or = to 40 mg Rosuvastatin > than or = to 20 mg Amlodipine + Atorvastatin > than or = to 2.5/40 mg Ezetimibe + Simvastatin 10/80 mg Simvastatin 80mg Discharge Plan Admission Admit Date/Time: 01/01/24 05:54 Attending Provider: Roberto Carlos Guzman Primary Care Provider: Sherlyn Shoemaker Consulting Providers: Yusuf Paz Discharge Orders/Prescriptions Prescriptions: No Action bupropion HCl [Wellbutrin XL] 150 mg tablet extended release 24 hr 150 mg PO QAM Qty: 90 1RF buspirone 5 mg tablet 10 mg PO BID Vraylar 1.5 mg capsule 1.5 mg PO QDAY trazodone 50 mg tablet 50 mg PO QHS amlodipine 5 mg tablet 5 mg PO QDAY fluvoxamine 50 mg tablet 25 mg PO QHS Referrals / Follow Up: Sherlyn Shomeaker MD [Primary Care Provider] - Disposition Disposition (needs filled in before D/C Order can be placed): Psychiatric Hospital or Unit Charges/Coding Visit Charges Inpatient E&M: 24739 Disch Hosp >30min
== END 2024-01-03 07:04 ==
LOC: ED 01-01 05:47 → ICU 01-01 07:18 → MS3 01-02 09:48 → ICU 01-03 09:37
PROVIDERS: Admitting Provider Hospitalist; Emergency Provider Emergency Medicine; PCP Internal Medicine; Visit Provider Internal Medicine
DX: F32.A Depression, unspecified (principal); F31.9 Bipolar disorder, unspecified; T43.222A Poisoning by selective serotonin reuptake inhibitors, intentional self-harm, initial encounter; T43.292A Poisoning by other antidepressants, intentional self-harm, initial encounter; T46.1X2A Poisoning by calcium-channel blockers, intentional self-harm, initial encounter; T50.992A Poisoning by other drugs, medicaments and biological substances, intentional self-harm, initial encounter; R00.0 Tachycardia, unspecified; I10 Essential (primary) hypertension; Z79.899 Other long term (current) drug therapy; F17.210 Nicotine dependence, cigarettes, uncomplicated
CPT/HCPCS: 80053; 80307; 80329; 82077; 84703; 85025; 93005; 96361; 96374; 96375; 96376; 99221; 99284; J7030; A4216; G0378; G0480; J2405

== ENCOUNTER → 2024-02-07 | Outpatient (CLI) | payer BC, SELFPAY ==
[2024-02-07 13:00] LABS: AST(SGOT) 13 U/L (15-37); Alanine Aminotransfer ALT/SGPT 29 U/L (13-56); Albumin, Serum 3.7 g/dL (3.2-5.0); Alkaline Phosphatase 66 U/L (45-117); Anion Gap 6 (5-15); BUN 12 mg/dL (7-18); BUN/Creat Ratio 12.6 RATIO (10-20); Calcium,Total 9.3 mg/dL (8.5-10.1); Chloride 109 mmol/L (98-107); Creatinine, Serum 0.95 mg/dL (0.55-1.02); EST Glomerular Filtration Rate 71 mL/min (>60); Est Glom Filt Rate - Afr Amer 85 mL/min (>60); Globulin 3.7 g/dL (2.2-4.2); Glucose 100 mg/dL (74-106); Potassium 3.5 mmol/L (3.5-5.1); Protein, Total 7.4 g/dL (6.4-8.2); Sodium Level 139 mmol/L (136-145)
== END | disposition home or self-care (01) ==
LOC: BIMLAB 08:28
PROVIDERS: PCP Internal Medicine; Visit Provider Internal Medicine
DX: I10 Essential (primary) hypertension (principal)
CPT/HCPCS: 36415; 80053

== ENCOUNTER → 2024-03-18 | Outpatient (CLI) | payer BC, SELFPAY ==
--- NOTE | 2024-03-18 14:26 | SP.MBSS_ITS ---
Modified Barium Swallow Patient Information Study Date: 03/18/24 Study Time: 13:00 Direct Billable Minutes: 135 Total Minutes procedure & reportin Diagnosis: Dysphagia, unspecified (R13.10) Referring Physician: Sherlyn Shoemaker Reason for Referral: Patient reports difficulty swallow characterized by oral holding prior to swallow onset w/ odynophagia, described as pain/discomfort when swallowing and the sensation of a persistent lump in her throat. The patient report that this occurs every time she eats/drinks and that it has been an issue since she was ~27 years old. Medical History: Odynophagia, Obesity, Depression, Suicidal ideation, Acute drug overdose, ADD (attention deficit disorder), OCD (obsessive compulsive disorder), Bipolar affect - depressed, Vaginal candidiasis, Insomnia, Anxiety and depression, Tobacco abuse counseling, Venous insufficiency of both lower extremities, Neck swelling, Obesity (BMI 30-39.9), Hypertension, Urinary incontinence, Carpal tunnel syndrome, Allergic dermatitis Current Diet Ordered: Regular Textures/Thin Liquids Dentition: Natural Teeth Mental Status: WNL Respiratory Status: Oxygenating on Room Air Penetration-Aspiration Scale Penetration-Aspiration Scale: OBJECTIVE ASSESSMENT OF SWALLOW FUNCTION (QUANTITATIVE ? PER TRIAL): PENETRATION / ASPIRATION SCALE (BOYD): 1 = does not enter airway 2 = enters airway/above vocal folds/ejected 3 = enters airway/above vocal folds/not ejected 4 = enters airway/contacts vocal folds/ejected 5 = enters airway/contacts vocal folds/not ejected 6 = enters airway/below vocal folds/ejected 7 = enters airway/below vocal folds/not ejected despite effort 8 = enters airway/below vocal folds/no effort VIDEOFLOROSCOPIC SCALE SCORE (BOYD): Grade I = aspiration of material that has penetrated into the laryngeal vestibule, intact cough reflex Grade II = aspiration < 10 % of the bolus, intact cough reflex Grade III = aspiration of < 10 % of the bolus, reduced cough reflex or aspiration of > 10 % of the bolus, intact cough reflex Grade IV = aspiration of > 10 % of the bolus, reduced cough reflex Penetration-Aspiration Scale Score Thin Liquid via teaspoon: Result: 1= does not enter airway Thin Liquid via teaspoon Trial 2: Result: 1= does not enter airway Thin Liquid via small single sip: cup: Result: 1= does not enter airway Thin Liquid via small single sip: cup Trial 2: Result: 1= does not enter airway Thin Liquid via single sip: straw: Result: 1= does not enter airway Thin Liquid via sequential sips: cup: Result: 1= does not enter airway Pudding via teaspoon: Result: 1= does not enter airway Cookie: Result: 1= does not enter airway Thin Liquid via small single sip: cup Trial 3: Result: 1= does not enter airway Oral Phase Labial Seal: No Labial Escape Tongue Control During Bolus Hold: Cohesive bolus between tongue to palatal seal Bolus Preparation/Mastication: Slow prolonged chewing/mashing with complete recollection Bolus Transport/Lingual Motion: Delayed initiation of tongue motion Oral Residue: Trace residue lining oral structures Pharyngeal Phase Initiation of Pharyngeal Swallow: Bolus head in pyriforms (spillage to the pyriforms during mastication of solids, spillage to the valleculae w/ thin and pudding consistencies) Soft Palate Elevation: No bolus between soft palate and pharyngeal wall Laryngeal Elevation: Partial superior movement thyroid cart/partial apprx aryt- epig petiole Anterior Hyoid Excursion: Complete anterior movement Epiglottic Movement: Complete inversion Laryngeal Vestibule Closure at Height of Swallow: Complete; no air/contrast in laryngeal vestibule Pharyngeal Stripping Wave: Present - complete Pharyngoesophageal Segment Opening: Complete distension and complete duration; no obstruction of flow Tongue Base Retraction: Narrow column of contrast between tongue base & post. pharyngeal wall Pharyngeal Residue: Complete pharyngeal clearance Esophageal Phase Esophageal Clearance: Complete clearance Diagnosis/Impression Diagnosis: Functional Oropharyngeal Swallow; Odynophagia Impression: Swallow function is grossly WNL. The oral phase is marked by... * mild oral holding w/ posturing/lingual rocking prior to swallow onset, likely used protectively in anticipation of discomfort w/ deglutition * pharyngeal bolus entry w/ bolus spillage to the pyriforms during mastication of solids and to the valleculae w/ thin and pudding consistencies prior to swallow onset The pharyngeal phase is marked by... * mildly reduced tongue base retraction w/ a narrow column of contrast between the tongue base and pharyngeal wall * trace/transient thin liquid undercoating the posterior laryngeal surface of the epiglottis during deglutition w/out laryngeal vestibule penetration * abnormal/irregular protrusion of tissue noted from the posterior pharyngeal wall below the epiglottis, recommend ENT referral to further assess the pharynx/larynx - see images below The esophageal phase was unremarkable. Recommendations Diet: Regular Textures and Thin Liquids Recommend Repeat Modified Barium Swallow: No Need for Skilled Speech Therapy Services: No Recommended Referrals: ENT Consult (see images above) Education Completed: 1. Described result of evaluation. (Images were reviewed w/ the patient immediately following MBSS completion. Anatomy/physiology of normal swallow function and identified pharyngeal structure differences were discussed. Pt verbalized understanding of the education provided and agreement w/ recommended ENT referral. ) and 3. Pt understands evaluation but refused treatment. Status Active ST Patient: Active Contact Information [facility] Speech Therapy:: Mercedes Joel M.A., DENTAL FINANCIAL COORDINATOR Speech-Language Pathologist [place] [id number] [place] [address] [email or web address] [phone]
== END | disposition home or self-care (01) ==
LOC: RAD 12:57
PROVIDERS: PCP Internal Medicine; Referring Provider Internal Medicine; Visit Provider Internal Medicine
DX: R13.10 Dysphagia, unspecified (principal)
CPT/HCPCS: 74230; 92611

== ENCOUNTER → 2024-10-21 | Outpatient (CLI) | payer BC, SELFPAY ==
[2024-10-21 17:06] LABS: Absolute Lymphocyte Count 1.62 X10^3/uL (0.83-4.51); Absolute Neutrophil Count 6.6 X10^3/uL (2.0-7.7); Basophil# 0.08 X10^3/uL; Basophil% 0.9 % (0-1); Eosinophil# 0.14 X10^3/uL; Eosinophils% 1.5 % (0-5); Hemoglobin 12.7 g/dL (12.0-15.0); Lymphocyte # 1.62 X10^3/ul (0.83-4.51); Lymphocyte % 17.7 % (19-41); Mean Corp Hgb Conc 32.6 g/dL (32-36); Mean Corpuscular Hgb 24.4 pg (27.0-32.0); Mean Corpuscular Volume 74.9 fL (81-99); Mean Platelet Vol. 11.1 fl (6.2-12.0); Monocyte# 0.68 X10^3/uL; Monocyte% 7.4 % (0-10); NRBC Flagged by Analyzer 0 % (0-5); Neutrophil # 6.57 X10^3/uL (2.7-7.7); Neutrophil % 71.7 % (47-70); Platelet Count 269 K/mm3 (150-450); RBC Distribution Width CV 16.6 % (11.6-14.6); RBC Distribution Width SD 43.8 fl (35.1-43.9); Red Blood Count 5.21 M/mm3 (4.2-5.4); White Blood Count 9.2 K/mm3 (4.4-11.0)
[2024-10-21 17:43] LABS: Erythrocyte Sedimentation Rate 17 mm/hr (0-30)
[2024-10-21 18:05] LABS: ALB/GLOB Ratio 1.3 RATIO (0.9-2.4); AST(SGOT) 20 U/L (<=31); Alanine Aminotransfer ALT/SGPT 19 U/L (<=34); Albumin, Serum 4.4 g/dL (3.5-5.0); Alkaline Phosphatase 74 U/L (35-104); Anion Gap 11 (5-15); BUN 12 mg/dL (4-19); BUN/Creat Ratio 15.1 RATIO (10-20); Calcium,Total 9.5 mg/dL (7.6-11.0); Carbon Dioxide 19.8 mmol/L (21.0-32.0); Chloride 104 mmol/L (98-108); Cholesterol 236 mg/dL (<=200); Creatinine, Serum 0.76 mg/dL (0.70-1.20); EST Glomerular Filtration Rate 103 (>60); Globulin 3.3 g/dL (2.2-4.2); Glucose 139 mg/dL (70-99); High Density Lipoprotein 83 mg/dL; Low Density Lipoprotein Calc. 133 mg/dL; Potassium 3.9 mmol/L (3.3-5.1); Protein, Total 7.7 g/dL (5.9-8.4); Sodium Level 135 mmol/L (133-145); Total Bilirubin 0.72 mg/dL (0.00-1.30); Triglycerides 98 mg/dL; Very Low Density Lipoprotein 20 mg/dL (5-40); cholesterol:hdl ratio screen 2.85
[2024-10-21 18:06] LABS: CRP < 3.00 mg/L (0.0-3.0); Rheumatoid Factor < 10.0 IU/mL (<15)
[2024-10-21 19:10] LABS: Hemoglobin A1c 5.5 % (<=5.6)
[2024-10-23 12:08] LABS: Anti-Centromere B Ab <0.2 AI (0.0-0.9); Anti-Chromatin <0.2 AI (0.0-0.9); Anti-Jo <0.2 AI (0.0-0.9); Anti-Scleroderma-70 AB <0.2 AI (0.0-0.9); Anti-dsDNA Ab <1 IU/mL (0-9); RNP Ab <0.2 AI (0.0-0.9); SJOGREN'S Anti-SS-A test < 0.2 AI (0.0-0.9); SJOGREN'S Anti-SS-B test < 0.2 AI (0.0-0.9); Smith Ab <0.2 AI (0.0-0.9)
== END | disposition home or self-care (01) ==
LOC: VSLAB 15:53
PROVIDERS: PCP Nurse Practitioner Family; Visit Provider Nurse Practitioner Family
DX: M25.50 Pain in unspecified joint (principal); E66.9 Obesity, unspecified
CPT/HCPCS: 36415; 80053; 80061; 83036; 84443; 85025; 85652; 86140; 86225; 86235; 86431

== ENCOUNTER 2024-10-22 05:55 | Day surgery (SDC) | payer BC, SELFPAY ==
--- NOTE | 2024-10-07 15:19 | PAT.ANESEVAL ---
Pre-Assessment Diagnosis/Proposed Procedure Planned Operative Procedure(s): CYSTO MID URETHRAL SLING Anesthesia History Anesthesia History - storage facility housekeeper: Anesthesia History - storage facility housekeeper Hx Hospitalization No 10/07/24 14:53 Any Problems With Anesthesia No 10/07/24 14:53 Cholinesterase deficiency No 10/07/24 14:53 You/Your Family Experience No 10/07/24 14:53 fever (hyperthermia) with Relationship Recent Exposure to Contagious Disease Does patient have nerve No 10/07/24 14:53 stimulator Patient instructed to have device shut off --Does patient have Pacemaker or ICD? When Was Last Pacemaker Check QUESTION #4 FULL TEXT: You/Your Family Experience fever (hyperthermia) with Anesthesia Last Oral Intake Last Oral intake: Last Oral Intake NPO since Meds taken in AM with sips of water? Meds patient instructed to take am of surgery PONV PONV - storage facility housekeeper: PONV - storage facility housekeeper Female Yes 10/07/24 14:53 HX of Motion Sickness No 10/07/24 14:53 HX of N/V After Surgery No 10/07/24 14:53 Non-Smoker Yes 10/07/24 14:53 Duration of Surgery greater Yes 10/07/24 14:53 than 60 minutes Number of Risk Factors 3 10/07/24 14:53 PONV Score Moderate Risk 10/07/24 14:53 Height & Weight Height & Weight: Anesthesia: Height & Weight Height 4 ft 11 in 03/11/24 09:52 Respiratory Assessment Respiratory Assessment - storage facility housekeeper: Respiratory Tract Infection Hx - storage facility housekeeper Hx Respiratory Tract Infection No 10/07/24 14:53 STOP Sleep Apnea STOP Sleep Apnea - storage facility housekeeper: STOP Sleep Apnea - storage facility housekeeper Hx Hypertension Yes: NO MED FOR 2-3 MONTHS 10/07/24 14:53 Hx Sleep Apnea No 10/07/24 14:53 CPAP BIPAP Do you snore loudly (louder No 10/07/24 14:53 than talking or can be heard Do you often feel tired/ No 10/07/24 14:53 fatigued/ sleepy during daytime? Has anyone observed you stop No 10/07/24 14:53 breathing during sleep? STOP Results Negative 10/07/24 14:53 QUESTION #5 FULL TEXT : Do you snore loudly (louder than talking or can be heard through closed doors)? Tobacco Use History Tobacco Use History - storage facility housekeeper: Tobacco Use History - storage facility housekeeper Tobacco Use Smoking Status Former smoker 10/07/24 14:53 Hx Tobacco Use Yes 10/07/24 14:53 Years Smoking Packs Smoked per Day Smoking Cessation Date was Yes - quit smoking within 15 10/07/24 14:53 within the last 15 years years Hx Smoking Cessation Date 08/08/24 10/07/24 14:53 Hx Smoking Cessation Counseling Hematologic Medial History Hematologic Hx - storage facility housekeeper: Hematologic Medical Hx - deputy probation officer Hx of Blood Transfusion No 10/07/24 14:53 Hx of Transfusion in last 3 No 10/07/24 14:53 Months Date of Last Transfusion (if within last 3 months) Ever experience any problems No 10/07/24 14:53 with transfusion(s)? Specify any problems Hx of Preganancy in last 3 No 10/07/24 14:53 Months Nurse Filling Out Transfusion DSCHRIBER 10/07/24 14:53 & Questions: Date: 10/07/24 10/07/24 14:53 Time: 14:55 10/07/24 14:53 Patient unable to answer at this time (ie. confused, unrespo /Reproduction History /Reproductive History - storage facility housekeeper: /Reproductive Hx- storage facility housekeeper Hx Now No 10/07/24 14:53 Gestational Age (in weeks): EDC: Hx Hx Para Hx Section SAB No 10/07/24 14:53 PFSH Medical History (Updated 10/07/24 @ 15:01 by Syeda Gonzalez) Wears glasses Former smoker Shortness of breath on exertion Cardiology follow-up encounter History of echocardiogram Hypertension Depression Suicidal ideation Acute drug overdose ADD (attention deficit disorder) OCD (obsessive compulsive disorder) Bipolar affect, depressed Insomnia Venous insufficiency of both lower extremities Urinary incontinence Allergy/AdvReac Type Severity Reaction Status Date / Time No Known Allergies Allergy Verified 10/07/24 14:50 Family History Grandfather Myocardial infarction 60s or 70s Other Diabetes Mental disorder Suicide attempt Surgical History (Updated 10/07/24 @ 15:01 by Syeda Gonzalez) S/P wisdom tooth extraction H/O tubal ligation Social History number of children: 2 current occupational status: employed 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 Smoking Status: Former smoker alcohol intake: never substance use type: does not use what type of physical activity do you participate in: walking frequency: 5-6 times per week seatbelt use: always do you feel safe at home: Yes additional social history: Single Audit: Pertinent Findings Pertinent Findings EKG Perinent findings: 01/02/2024. Normal sinus rhythm 79 bpm. Nonspecific T wave abnormality. Recommendation Anesthesia Recommendation Anesthesia recommendation: OPTIMIZED for anesthesia
[2024-10-22] VITALS (15 sets, daily range): BP systolic 89–128; BP diastolic 50–85; PULSE 79–104; RESP 14–20; TEMP 36.1–37.3; O2SAT 95–100; BMI 36.9
[2024-10-22 06:34] LABS: Hematocrit 36.5 % (37-47); Hemoglobin 11.9 g/dL (12.0-15.0); Mean Corp Hgb Conc 32.6 g/dL (32-36); Mean Corpuscular Volume 73.7 fL (81-99); Mean Platelet Vol. 10.1 fl (6.2-12.0); Platelet Count 238 K/mm3 (150-450); RBC Distribution Width CV 16.4 % (11.6-14.6); Red Blood Count 4.95 M/mm3 (4.2-5.4); White Blood Count 9.5 K/mm3 (4.4-11.0)
[2024-10-22] MEDS: Lactated Ringers 1,000 ML 15 ML IV ×2 (06:38→12:18)
[2024-10-22 06:52] LABS: Anion Gap 11 (5-15); BUN 11 mg/dL (4-19); BUN/Creat Ratio 17.6 RATIO (10-20); Chloride 106 mmol/L (98-108); Creatinine, Serum 0.64 mg/dL (0.70-1.20); EST Glomerular Filtration Rate 117 (>60); Estimated Creatinine Clearance 114.95 ml/min (50-250); Glucose 117 mg/dL (70-99); Potassium 3.7 mmol/L (3.3-5.1); Sodium Level 135 mmol/L (133-145)
--- NOTE | 2024-10-22 07:08 | PCM.PRE.AN2 ---
ASA Classification* ASA Classification ASA Classification: 2 Assessment & Plan Anesthesia* Anesthesia Assessment Anesthesia Assessment: Discussed sedation and/or anesthesia options, risks, benefits, and alternatives with patient/parents/legal guardian/POA. Questions invited. The patient/parents/legal guardian/POA seems to understand and agrees to proceed with anesthesia plan. Reviewed the physical assessment, medical history, allergy history and patient home medications list prior to surgery/procedure/anesthetic and documented any changes. Performed airway and anesthesia risk assessments. Anesthesia Type Anesthesia Type: General History Source History Obtained from:: Patient and Chart Anesthesia Focused Assessment* Temperature: 99.1 F Pulse Rate: 94 Blood Pressure: 121/73 Respiratory Rate: 16 Pulse Ox: 98 Oxygen Delivery Method: Room Air Airway Assessment Mouth opens: >3 cm Mallampati Score: II Teeth Condition: Intact Focused Labs Anesthesia Preop lab: CBC WBC 9.5 K/mm3 (4.4-11.0) 10/22/24 06:10/22/24 RBC 4.95 M/mm3 (4.2-5.4) 10/22/24 06:10/22/24 Hgb 11.9 g/dL (12.0-15.0) L 10/22/24 06:25 10/22/24 Hct 36.5 % (37-47) L 10/22/24 06:25 10/22/24 Plt Count 238 K/mm3 (150-450) 10/22/24 06:25 10/22/24 CHEMISTRY Potassium 3.7 mmol/L (3.3-5.1) 10/22/24 06:25 10/22/24 Sodium 135 mmol/L (133-145) 10/22/24 06:25 10/22/24 BUN 11 mg/dL (4-19) 10/22/24 06:25 10/22/24 Creatinine 0.64 mg/dL (0.70-1.20) L 10/22/24 06:25 10/22/24 Glucose [facility] 106 mg/dL (70-110) 08/02/22 06:31 08/02/22 Glucose 117 mg/dL (70-99) H 10/22/24 06:25 10/22/24 TSH 1.450 uIU/mL (0.300-4.200) 10/21/24 15:55 10/21/24 COAG Urine Test Negative Negative 11/03/23 06:40 11/03/23 [facility] Negative 08/02/22 06:31 08/02/22 Pre-Assessment Diagnosis/Proposed Procedure Planned Operative Procedure(s): CYSTO MID URETHRAL SLING Anesthesia History 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 When Was Last Pacemaker Check QUESTION #4 FULL TEXT: You/Your Family Experience fever (hyperthermia) with Anesthesia Last Oral Intake Last Oral intake: Last Oral Intake NPO since 00:00 10/22/24 06:45 Meds taken in AM with sips of No 10/22/24 06:45 water? Meds patient instructed to take am of surgery PONV PONV - systems analyst engineer: PONV - systems analyst engineer Female Yes 10/07/24 14:53 HX of Motion Sickness No 10/07/24 14:53 HX of N/V After Surgery No 10/07/24 14:53 Non-Smoker Yes 10/07/24 14:53 Duration of Surgery greater Yes 10/07/24 14:53 than 60 minutes Number of Risk Factors 3 10/07/24 14:53 PONV Score Moderate Risk 10/07/24 14:53 Height & Weight Height & Weight: Anesthesia: Height & Weight Height 4 ft 11 in 10/22/24 06:45 Weight: 83 kg 10/22/24 06:45 Body Mass Index (BMI) 36.9 10/22/24 06:45 Respiratory Assessment Respiratory Assessment - systems analyst engineer: Respiratory Tract Infection Hx - systems analyst engineer Hx Respiratory Tract Infection No 10/07/24 14:53 STOP Sleep Apnea STOP Sleep Apnea - systems analyst engineer: STOP Sleep Apnea - systems analyst engineer Hx Hypertension Yes: NO MED FOR 2-3 MONTHS 10/07/24 14:53 Hx Sleep Apnea No 10/07/24 14:53 CPAP BIPAP Do you snore loudly (louder No 10/07/24 14:53 than talking or can be heard Do you often feel tired/ No 10/07/24 14:53 fatigued/ sleepy during daytime? Has anyone observed you stop No 10/07/24 14:53 breathing during sleep? STOP Results Negative 10/07/24 14:53 QUESTION #5 FULL TEXT : Do you snore loudly (louder than talking or can be heard through closed doors)? Tobacco Use History Tobacco Use History - systems analyst engineer: Tobacco Use History - systems analyst engineer Tobacco Use Smoking Status Former smoker 10/07/24 14:53 Hx Tobacco Use Yes 10/07/24 14:53 Years Smoking Packs Smoked per Day Smoking Cessation Date was Yes - quit smoking within 15 10/07/24 14:53 within the last 15 years years Hx Smoking Cessation Date 08/08/24 10/07/24 14:53 Hx Smoking Cessation Counseling Hematologic Medial History Hematologic Hx - systems analyst engineer: Hematologic Medical Hx - mason tender Hx of Blood Transfusion No 10/07/24 14:53 Hx of Transfusion in last 3 No 10/07/24 14:53 Months Date of Last Transfusion (if within last 3 months) Ever experience any problems No 10/07/24 14:53 with transfusion(s)? Specify any problems Hx of Preganancy in last 3 No 10/07/24 14:53 Months Nurse Filling Out Transfusion DSCHRIBER 10/07/24 14:53 & Questions: Date: 10/07/24 10/07/24 14:53 Time: 14:55 10/07/24 14:53 Patient unable to answer at this time (ie. confused, unrespo /Reproduction History /Reproductive History - systems analyst engineer: /Reproductive Hx- systems analyst engineer Hx Now No 10/07/24 14:53 Gestational Age (in weeks): EDC: Hx Hx Para Hx Section SAB No 10/07/24 14:53 Active Medications Active Medications: Current Medications Generic Name Dose Route Start Last Admin Trade Name Freq PRN Reason Stop Dose Admin Cefazolin Sodium 2 gm/ Sodium 110 mls @ 150 mls/hr 10/22/24 07:30 Chloride IV 10/22/24 08:13 INTRAOP ONE Lactated Ringer's 1,000 mls @ 15 mls/hr 10/22/24 06:15 10/22/24 06:38 IV 15 mls/hr .Q48H EDWIN Administration PFSH Medical History Wears glasses Former smoker Shortness of breath on exertion Cardiology follow-up encounter History of echocardiogram Hypertension Depression Suicidal ideation Acute drug overdose ADD (attention deficit disorder) OCD (obsessive compulsive disorder) Bipolar affect, depressed Insomnia Venous insufficiency of both lower extremities Urinary incontinence Home Medications ?Medication ?Instructions ?Recorded ?Last Taken ?Type aripiprazole 2 mg tablet 2 mg PO DAILY 10/21/24 10/21/24 History bupropion HCl 150 mg 24 hr tablet, 150 mg PO DAILY 10/21/24 10/21/24 History extended release trazodone 100 mg tablet 200 mg PO QHS 10/21/24 10/21/24 History Allergy/AdvReac Type Severity Reaction Status Date / Time No Known Allergies Allergy Verified 10/07/24 14:50 Family History Grandfather Myocardial infarction 60s or 70s Other Diabetes Mental disorder Suicide attempt Surgical History S/P wisdom tooth extraction H/O tubal ligation Social History number of children: 2 current occupational status: employed 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 Smoking Status: Current every day smoker tobacco type: cigarettes alcohol intake: never substance use type: does not use what type of physical activity do you participate in: walking frequency: 5-6 times per week seatbelt use: always do you feel safe at home: Yes additional social history: Single Addt'l Information Additional Findings: EKG NSR Review of Systems (Anesthesia) ROS Narrative System reviewed and no additional complaints, except as documented. Physical Exam Const alert and oriented x3 Resp normal respiratory effort and normal air movement Auscultation: clear to auscultation bilaterally Cardio regular rate and regular rhythm
--- NOTE | 2024-10-22 07:29 | EX.PCM.DISCH ---
Discharge Instructions Diet Discharge Diet: No restrictions Activity Discharge Activity: May Shower May resume sexual activity in: 4 weeks Lifting Restrictions: 5 pounds Additional Activity Instructions:: No exercise, strenuous activity, walking dog, vacuuming, swimming, hot tubs, tub bathing Dressing / Incision Call your doctor if your incision/area has: Continuous Slow Oozing, Sudden Increased Bleeding, Increased Pain/ Swelling and Foul Smelling Discharge Call your doctor if you observe: Fever of 101 or Higher, Inability to urinate and Inability to have a bowel movement Follow Up Care Please Follow Up With: Amy Padilla MD When: The office will call her to make follow-up arrangements. Test Results: Test results from this visit will be discussed in further detail at your follow-up appointment, if applicable. Discharge Plan Admission Attending Provider: Amy Padilla Primary Care Provider: Latosha Clements Instructions Print Language: [place] Discharge Orders/Prescriptions Prescriptions: New oxycodone-acetaminophen 5-325 mg tablet 1 tab PO Q8H PRN (Reason: pain) 3 Days Qty: 10 0RF cephalexin 500 mg capsule 500 mg PO Q12 3 Days Qty: 6 0RF Continued trazodone 100 mg tablet 200 mg PO QHS bupropion HCl 150 mg tablet extended release 24 hr 150 mg PO DAILY aripiprazole 2 mg tablet 2 mg PO DAILY Referrals / Follow Up: Latosha Clements, [facility] [Primary Care Provider] - Disposition Disposition (needs filled in before D/C Order can be placed): Home, Self Care
--- NOTE | 2024-10-22 07:32 | OP.PCM_ITS ---
Operative Report (Standard) Operative Information Date of Procedure: 10/22/24 Pre-Operative Diagnosis: Stress urinary incontinence Post-Operative Diagnosis: Same Surgery/Procedure Performed: Mid urethral sling, cystoscopy operations support coordinator: No Type of Anesthesia: General RN Documented Start/Stop Times: Operation Date: 10/22/24 07:30 Case Time Into Pre-Op 10/22/24 06:02 Out of Pre-Op 10/22/24 07:27 Anesthesia Start 10/22/24 07:30 Into Room 10/22/24 07:30 Procedure Start 10/22/24 07:49 Procedure End 10/22/24 08:02 Anesthesia End 10/22/24 08:05 Out of Room 10/22/24 08:05 Into Recovery 10/22/24 08:06 Procedure Start Time: 07:49 Procedure Stop Time: 08:02 Select all DRAINS/GRAFTS/IMPLANTS that apply: Implanted device Implanted device details: Altis mid urethral sling Estimated Blood Loss: 10cc Specimen collected: No Description of surgery: The patient is a 39-year-old female with stress urinary incontinence who presents for surgical intervention. Informed consent was obtained. She was taken to the operating room and placed on the operating room table. Anesthesia monitored the head, neck, airway, IV access and vital signs throughout the case. Once anesthesia was appropriately ministered she is placed into dorsolithotomy position in Trendelenburg and was prepped and draped in usual sterile fashion. A Arana catheter was inserted to straight drain and the bladder was emptied. The mid urethra was isolated and injected submucosally with 1% lidocaine with epinephrine for hydrostatic dissection and hemostatic con trol. A midline vertical incision was made approximately 1.5 to 2 cm in length. Sharp and blunt dissection was performed on either side of the urethra with care being taken to avoid entrance into the urethra or the vaginal mucosa. Using the trocars provided, the tines of the Altis mid urethral sling were passed through the transobturator complexes bilaterally. The sling was positioned flatly against the urethra and tension using the tensioning suture. The suture was then cut. The incision was closed with running interlocking 2-0 Vicryl. The Arana catheter was then removed and the patient was placed in a flat position. Cystoscope was inserted through the urethra under direct visualization into the urinary bladder. The bladder lumen and urethra were visualized in their entirety and there were no findings of foreign body, laceration or other abnormality. The cystoscope was then removed. The patient was awakened and taken to the recovery room in good condition. There were no co mplications during this procedure. Surgical Findings: Altis mid urethral sling placed in normal mid urethral Complications Complications: No Admit VTE Documentation VTE Present on Admission: Yes VTE Mechan Device Prophylaxis: SCD's VTE Pharm Prophylaxis ordered?: No Reason prophylaxis not ordered: Treatment Not Indicated
[2024-10-22] MEDS: Cefazolin 2 GM in 0.9% Normal Saline (100mL Bag) 100 ML IV (07:34)
[2024-10-22] MEDS: Lidocaine 1% /Epi 1:100 (20ml) 20 ML Vial (07:50)
--- NOTE | 2024-10-22 08:17 | PCM.POST.ANE ---
Anesthesia: Postop Eval I Current Vital Signs Temperature: 97.4 F Pulse Rate: 102 Blood Pressure: 128/75 Respiratory Rate: 14 Pulse Ox: 98 Oxygen Delivery Method: Room Air Assessment Airway patent: Yes Spontaneous unlabored respirations: Yes Mental status: Awake nausea: No Vomiting: No Anesthesia Complication: No Fluid Hydration Crystalloid volume administer (ml): 500 Total IV fluid infused: 500 Progress Note Anesthesia document: Postop Eval 1 completed: Yes
--- NOTE | 2024-10-22 10:54 | POSTOPAN2_ITS ---
Anesthesia Postop Eval I Sum Postop Eval Completion status Anesthesia document: Postop Eval 1 completed: Yes Anesthesia Postop Eval I Summary Anesthesia Postop Eval I Summary: Anesthesia Postop Eval I: Assessment Summary Airway patent Yes 10/22/24 08:17 [email or web address] Spontaneous unlabored Yes 10/22/24 08:17 [email or web address] respirations Mental status Awake 10/22/24 08:17 [email or web address] nausea No 10/22/24 08:17 [email or web address] Vomiting No 10/22/24 08:17 [email or web address] Anesthesia Postop Eval I: Fluid Summary Crystalloid volume administer 500 10/22/24 08:17 [email or web address] (ml) Colloids volume administered ( ml) Blood Product volume administered (ml) Total IV fluid infused 500 10/22/24 08:17 [email or web address] Anesthesia Postop Eval I: Summary Notes Anesthesia Complication No 10/22/24 08:17 [email or web address] Anesthesia Complication Comment: Post-operative progress note Anesthesia: Postop Eval II Evaluation Mental status: Awake and Calm Pain Level: 1 nausea: No Vomiting: No Complications Anesthesia Complication: No
--- NOTE | 2024-10-22 10:54 | PCM.POSTANE2 ---
Anesthesia Postop Eval I Sum Postop Eval Completion status Anesthesia document: Postop Eval 1 completed: Yes Anesthesia Postop Eval I Summary Anesthesia Postop Eval I Summary: Anesthesia Postop Eval I: Assessment Summary Airway patent Yes 10/22/24 08:17 TAPE [email or web address] Spontaneous unlabored Yes 10/22/24 08:17 TAPE [email or web address] respirations Mental status Awake 10/22/24 08:17 TAPE [email or web address] nausea No 10/22/24 08:17 TAPE [email or web address] Vomiting No 10/22/24 08:17 TAPE [email or web address] Anesthesia Postop Eval I: Fluid Summary Crystalloid volume administer 500 10/22/24 08:17 TAPE [email or web address] (ml) Colloids volume administered ( ml) Blood Product volume administered (ml) Total IV fluid infused 500 10/22/24 08:17 TAPE [email or web address] Anesthesia Postop Eval I: Summary Notes Anesthesia Complication No 10/22/24 08:17 TAPE [email or web address] Anesthesia Complication Comment: Post-operative progress note Anesthesia: Postop Eval II Evaluation Mental status: Awake and Calm Pain Level: 1 nausea: No Vomiting: No Complications Anesthesia Complication: No
[2024-10-22] MEDS: Ketorolac 15 MG/ML Vial IV (12:02)
[2024-10-22] MEDS: Acetaminophen 500 MG Tablet 1000 MG PO (12:02)
== END 2024-10-22 14:55 | disposition home or self-care (01) ==
LOC: SDC 05:56 → AC 05:56
PROVIDERS: Anesthesiology; PCP Nurse Practitioner Family; Referring Provider Urology; Visit Provider Urology
PROC: 0TJB8ZZ Inspection of Bladder, Via Natural or Artificial Opening Endoscopic (ICD-10-PCS; CPT 57288; principal; 2024-10-22 07:20)
DX: N39.3 Stress incontinence (female) (male) (principal); I10 Essential (primary) hypertension; Z79.899 Other long term (current) drug therapy; F41.9 Anxiety disorder, unspecified; N32.81 Overactive bladder; N39.0 Urinary tract infection, site not specified; Z87.891 Personal history of nicotine dependence
CPT/HCPCS: 57288; 00860; 80048; 85027; C1771; J2405